=== PATIENT | female | born 1955 | race Caucasian/White ===

== ENCOUNTER 2020-08-03 14:46 | Inpatient (IN) ==
[2020-08-03] MEDS ORDERED: ACETAMINOPHEN 500 MG TABLET PO STA (14:57)
[2020-08-03] MEDS ORDERED: SODIUM CHLORIDE 0.9% 2,000 ML IV STA (14:57)
[2020-08-03 15:40] LABS: Bacteria,Urine Occasional /HPF (Few); Bilirubin,Urine Negative (Negative); Blood, Urine Negative (Negative); Glucose,Urine (UA) Negative (Negative); Ketones,Urine Negative (Negative); Nitrite,Urine Negative (Negative); Protein,Urine 30 MG/DL; Squamous Epithelial Cell,Urine Occasional /HPF (0-10); Urine Appearance CLOUDY (Clear); Urine Color Amber (Yellow); Urine Specific Gravity 1.015 (1.001-1.035); Urine Urobilinogen < 2.0 EU/DL (0.2-1.0); WBC,Urine 2 /HPF (0-6)
[2020-08-03 15:45] LABS: Basophils % 0.3 % (0.0-0.8); Hematocrit 40.7 VOL% (35.7-47.0); Immature Granulocytes % 1.1 %; Immature Granulocytes Absolute 0.18 #; Lymphocytes # 1.6 10*3/uL (1.4-4.0); Lymphocytes % 10.1 % (21.3-54.2); Mean Corpuscular HGB Conc 34.4 GM/DL (32-36); Mean Corpuscular Volume 88.9 FL (87-102); Mean Platelet Volume 11.8 FL (9.6-12.0); Monocytes % 7.1 % (1.7-12.7); NRBC # 0.09 10*3/uL; Neutrophils % 81.4 % (38.7-73.9); Platelet Count 186 T/CUMM (130-400); Red Blood Count 4.58 MC/CUMM (3.8-5.5); Red Cell Distribution Width 16.6 % (9.3-17.3); White Blood Count 15.8 T/CUMM (4-12)
[2020-08-03 15:54] LABS: INR 1.5; PT Patient Result 15.5 SECS (9.8-11.9)
[2020-08-03 16:11] LABS: Alanine Aminotransferase 37 U/L (13-56); Albumin 2.8 G/DL (3.4-5.0); Alkaline Phosphatase 245 U/L (45-117); Aspartate Amino Transferase 67 U/L (0-37); Blood Urea Nitrogen 34 MG/DL (7-18); Calcium 8.6 MG/DL (8.5-10.1); Glucose 95 MG/DL (74-106); Osmolality,Calculated 269.7 MOS/KG (273-304)
[2020-08-03 16:17] LABS: Estimated Glom Filtration Rate 0 ML/MIN
[2020-08-03] MEDS ORDERED: DEXAMETHASONE 4 MG/1 ML VIAL IV STA (16:21)
[2020-08-03] MEDS ORDERED: PIPERACILLIN/TAZOBACTAM 3,375 MG in SODIUM CHLORIDE 0.9% 100 ML IV STA ×2 (16:21→17:24)
[2020-08-03] MEDS ORDERED: ONDANSETRON 4 MG/2 ML VIAL IV PRN (16:30)
[2020-08-03] MEDS ORDERED: DEXTROSE 50% 25 GM/50 ML VIAL IV PRN ×2 (16:30→16:50)
[2020-08-03] MEDS ORDERED: GLUCAGON 1 MG VIAL IM PRN ×2 (16:30→16:50)
[2020-08-03] MEDS ORDERED: ACETAMINOPHEN 325 MG TABLET PO PRN (16:30)
[2020-08-03] MEDS ORDERED: FUROSEMIDE 40 MG/4 ML VIAL IV STA (16:36)
[2020-08-03 17:12] LABS: Ferritin 935.5 ng/ml (8-252)
[2020-08-03] MEDS ORDERED: SODIUM CHLORIDE 0.9% 100 ML IV ONE (17:31)
[2020-08-03] MEDS ORDERED: PIPERACILLIN/TAZOBACTAM 3,375 MG VIAL IV ONE (17:31)
[2020-08-03] MEDS: ENOXAPARIN 30 MG/0.3 ML SYRINGE SUBCUT SCH (20:35)
[2020-08-03] MEDS: ACETAMINOPHEN 325 MG TABLET PO PRN (20:35)
[2020-08-03] MEDS: CHOLECALCIFEROL 400 UNIT TABLET PO SCH (20:35)
[2020-08-03] MEDS: ASCORBIC ACID 500 MG TABLET PO SCH (20:35)
[2020-08-03] MEDS: ONDANSETRON 4 MG/2 ML VIAL IV PRN (23:42)
[2020-08-04] MEDS: ACETAMINOPHEN 325 MG TABLET PO PRN ×2 (00:21→06:38)
[2020-08-04] MEDS: ONDANSETRON 4 MG/2 ML VIAL IV PRN ×2 (03:37→22:14)
[2020-08-04 06:37] LABS: HDL Cholesterol < 10 MG/DL (40-60); Thyroid Stimulating Hormone 0.105 uIU/ml (0.358-3.74); Triglycerides 276 MG/DL (2-150); VLDL CHOLESTEROL 55.2 MG/DL
[2020-08-04] MEDS: PANTOPRAZOLE 40 MG TABLET PO SCH (08:22)
[2020-08-04] MEDS: DEXAMETHASONE 4 MG/1 ML VIAL IV SCH (08:22)
[2020-08-04] MEDS: ASCORBIC ACID 500 MG TABLET PO SCH ×3 (08:23→22:15)
[2020-08-04] MEDS: ZINC GLUCONATE 50 MG TABLET PO SCH (08:23)
[2020-08-04] MEDS: CHOLECALCIFEROL 400 UNIT TABLET PO SCH ×3 (08:23→22:15)
[2020-08-04] MEDS: cefTRIAXone 1,000 MG in SYRINGE 1 EACH IV SCH (08:59)
[2020-08-04] MEDS ORDERED: cefTRIAXone 1,000 MG in SYRINGE 1 EACH IV SCH (09:00)
[2020-08-04] MEDS ORDERED: AZITHROMYCIN INJ 500 MG in SODIUM CHLORIDE 0.9% 250 ML IV SCH (09:00)
[2020-08-04] MEDS ORDERED: PANTOPRAZOLE 40 MG TABLET PO SCH ×2 (09:00)
[2020-08-04] MEDS: AZITHROMYCIN INJ 500 MG in SODIUM CHLORIDE 0.9% 250 ML IV SCH (11:26)
[2020-08-04 12:23] LABS: Albumin 2.4 G/DL (3.4-5.0); Bilirubin,Total 0.4 MG/DL (0.2-1.0); Calcium 8.4 MG/DL (8.5-10.1); Osmolality,Calculated 289.3 MOS/KG (273-304); Total Protein 6.8 G/DL (6.4-8.3)
[2020-08-04 13:07] LABS: Basophils % 0.2 % (0.0-0.8); Hematocrit 37.5 VOL% (35.7-47.0); Hemoglobin 13.1 GM/DL (12.0-16.0); Immature Granulocytes % 1.7 %; Immature Granulocytes Absolute 0.33 #; Lymphocytes # 2.3 10*3/uL (1.4-4.0); Lymphocytes % 11.7 % (21.3-54.2); Mean Corpuscular HGB Conc 34.9 GM/DL (32-36); Mean Corpuscular Volume 88.7 FL (87-102); Mean Platelet Volume 11.6 FL (9.6-12.0); Monocytes % 6.7 % (1.7-12.7); NRBC # 0.04 10*3/uL; Neutrophils % 79.7 % (38.7-73.9); Platelet Count 210 T/CUMM (130-400); Red Blood Count 4.23 MC/CUMM (3.8-5.5); Red Cell Distribution Width 16.4 % (9.3-17.3); White Blood Count 19.4 T/CUMM (4-12)
[2020-08-04] MEDS: ACETAMINOPHEN 500 MG TABLET PO SCH ×2 (13:29→22:15)
[2020-08-04 13:49] LABS: ABG Base Excess 0.4 MMOL/L (-2.5-2.5); ABG HCO3 24.5 MMOL/L (20-26); ABG Oxygen Saturation 88.7 % (95-100); ABG PCO2 27.8 MM HG (35-48); ABG PO2 51.6 MM HG (80-95); ABG TCO2 19.3 MMOL/L (23-27)
[2020-08-04] MEDS: LOPERAMIDE 2 MG CAPSULE PO PRN ×2 (14:29→18:37)
[2020-08-04 17:25] LABS: Hypochromasia 1+
[2020-08-04] MEDS: CLORAZEPATE 3.75 MG TABLET PO ONE ×2 (21:35→21:45)
[2020-08-04] MEDS: ENOXAPARIN 30 MG/0.3 ML SYRINGE SUBCUT SCH ×2 (21:45→22:15)
[2020-08-04] MEDS ORDERED: METOPROLOL TARTRATE 5 MG/5 ML VIAL IV ONE (23:44)
[2020-08-05] MEDS ORDERED: LORazepam 2 MG/1 ML VIAL IV ONE ×3 (01:34→09:52)
[2020-08-05] MEDS ORDERED: PANTOPRAZOLE 40 MG VIAL IV ONE (01:36)
[2020-08-05] MEDS ORDERED: DILTIAZEM 50 MG/10 ML VIAL IV ONE ×2 (05:02→05:27)
[2020-08-05] MEDS ORDERED: METOPROLOL TARTRATE 5 MG/5 ML VIAL IV ONE ×2 (05:39→05:59)
[2020-08-05 05:40] LABS: ABG Base Excess 2.5 MMOL/L (-2.5-2.5); ABG HCO3 26.3 MMOL/L (20-26); ABG Oxygen Saturation 86.4 % (95-100); ABG PCO2 28.3 MM HG (35-48); ABG PH 7.536 (7.35-7.45); ABG PO2 47.5 MM HG (80-95); ABG TCO2 20.8 MMOL/L (23-27)
[2020-08-05] MEDS ORDERED: METOPROLOL TARTRATE 50 MG TABLET PO SCH (06:00)
[2020-08-05] MEDS ORDERED: ACETAMINOPHEN 650 MG SUPP RECTAL ONE (06:12)
[2020-08-05 06:22] LABS: Basophils % 0.1 % (0.0-0.8); Hematocrit 37.2 VOL% (35.7-47.0); Hemoglobin 13.1 GM/DL (12.0-16.0); Immature Granulocytes % 1.3 %; Immature Granulocytes Absolute 0.32 #; Lymphocytes # 1.4 10*3/uL (1.4-4.0); Lymphocytes % 5.9 % (21.3-54.2); Mean Corpuscular HGB Conc 35.2 GM/DL (32-36); Mean Corpuscular Volume 87.1 FL (87-102); Mean Platelet Volume 11.3 FL (9.6-12.0); Monocytes % 3.2 % (1.7-12.7); NRBC # 0.04 10*3/uL; Neutrophils % 89.5 % (38.7-73.9); Platelet Count 240 T/CUMM (130-400); Red Blood Count 4.27 MC/CUMM (3.8-5.5); Red Cell Distribution Width 16.1 % (9.3-17.3)
[2020-08-05 06:46] LABS: Band Neutrophils 1 % (0-10); Lymphocytes 3 % (20-55); Segmented Neutrophils 90 % (50-85); Total Cells Counted 100
[2020-08-05 06:48] LABS: Target Cells Few
[2020-08-05 06:49] LABS: Hypochromasia 1+; Platelet Estimate Adequate
[2020-08-05 06:50] LABS: Albumin 2.7 G/DL (3.4-5.0); Bilirubin,Total 1.3 MG/DL (0.2-1.0); Calcium 8.8 MG/DL (8.5-10.1); Osmolality,Calculated 274.8 MOS/KG (273-304); Total Protein 6.4 G/DL (6.4-8.3)
[2020-08-05] MEDS: LORazepam 2 MG/1 ML VIAL IV ONE ×2 (07:50→10:57)
[2020-08-05] MEDS ORDERED: [UNRECOGNIZED DRUG - OTHER] IV SCH (08:30)
[2020-08-05] MEDS ORDERED: ACETAMINOPHEN 650 MG SUPP RECTAL PRN (08:33)
[2020-08-05] MEDS: ACETAMINOPHEN 500 MG TABLET PO SCH ×3 (08:47→22:45)
[2020-08-05] MEDS: DEXAMETHASONE 4 MG/1 ML VIAL IV SCH (08:55)
[2020-08-05] MEDS: PANTOPRAZOLE 40 MG TABLET PO SCH (08:59)
[2020-08-05] MEDS: ENOXAPARIN 60 MG/0.6 ML SYRINGE SUBCUT SCH ×2 (08:59→22:09)
[2020-08-05] MEDS: cefTRIAXone 1,000 MG in SYRINGE 1 EACH IV SCH (09:00)
[2020-08-05] MEDS: ASCORBIC ACID 500 MG TABLET PO SCH ×2 (09:08→20:54)
[2020-08-05] MEDS: ZINC GLUCONATE 50 MG TABLET PO SCH (09:09)
[2020-08-05] MEDS: CHOLECALCIFEROL 400 UNIT TABLET PO SCH ×2 (09:09→20:54)
[2020-08-05 09:41] LABS: Amorphous Crystals,Urine Occasional /HPF (Few); Bilirubin,Urine Negative (Negative); Blood, Urine Negative (Negative); Glucose,Urine (UA) Negative (Negative); Ketones,Urine 20 mg/dL (Negative); Mucus,Urine Occasional /LPF (Occasional); Nitrite,Urine Negative (Negative); Protein,Urine 100 MG/DL; RBC,Urine 1 /HPF (0-4); Squamous Epithelial Cell,Urine Occasional /HPF (0-10); Urine Appearance CLEAR (Clear); Urine Color Yellow (Yellow); Urine Specific Gravity 1.024 (1.001-1.035); Urine Urobilinogen < 2.0 EU/DL (0.2-1.0); WBC,Urine <1 /HPF (0-6)
[2020-08-05] MEDS ORDERED: ETOMIDATE 20 MG/10 ML VIAL IV ONE ×5 (09:46→10:15)
[2020-08-05] MEDS ORDERED: SUCCINYLCHOLINE 200 MG/10 ML VIAL IV ONE ×2 (09:57→10:06)
[2020-08-05] MEDS ORDERED: IMMUNE GLOBULIN 10% 20 GM in PREMIX 1 EACH IV SCH (10:00)
[2020-08-05] MEDS ORDERED: SUCCINYLCHOLINE 200 MG/10 ML VIAL ONE (10:05)
[2020-08-05] MEDS ORDERED: ROCURONIUM 1,000 MG in SODIUM CHLORIDE 0.9% 175 ML IV PRN (10:34)
[2020-08-05 11:01] LABS: ABG Base Excess -2.8 MMOL/L (-2.5-2.5); ABG HCO3 22.8 MMOL/L (20-26); ABG PCO2 42.9 MM HG (35-48); ABG PH 7.344 (7.35-7.45); ABG PO2 119.6 MM HG (80-95); ABG TCO2 24.2 MMOL/L (23-27)
[2020-08-05] MEDS ORDERED: DIGOXIN 0.5 MG/2 ML AMP IV ONE ×2 (11:15→12:30)
[2020-08-05] MEDS ORDERED: SODIUM CHLORIDE 0.9% 1,000 ML IV ONE (12:17)
[2020-08-05] MEDS: fentaNYL INJ 1,250 MCG in SODIUM CHLORIDE 0.9% 225 ML IV PRN ×2 (12:45→20:49)
[2020-08-05] MEDS: METOPROLOL TARTRATE 5 MG/5 ML VIAL IV SCH ×3 (14:42→23:44)
[2020-08-05] MEDS: AZITHROMYCIN INJ 500 MG in SODIUM CHLORIDE 0.9% 250 ML IV SCH (14:43)
[2020-08-05] MEDS: ACETAMINOPHEN 325 MG TABLET PO PRN (17:25)
[2020-08-05] MEDS ORDERED: NOREPINEPHRINE 8 MG in SODIUM CHLORIDE 0.9% 242 ML IV PRN (18:57)
[2020-08-05] MEDS: MIDAZOLAM 100 MG in SODIUM CHLORIDE 0.9% 80 ML IV PRN (20:22)
[2020-08-05] MEDS: ZINC OXIDE 16% PASTE 57 GM TUBE TOP SCH (20:54)
[2020-08-06] MEDS: fentaNYL INJ 1,250 MCG in SODIUM CHLORIDE 0.9% 225 ML IV PRN ×5 (01:56→22:47)
[2020-08-06 03:39] LABS: Allen Test Positive; Pt O2 Delivery Device Ventilator
[2020-08-06 03:40] LABS: ABG Base Excess -3.1 MMOL/L (-2.5-2.5); ABG HCO3 21.7 MMOL/L (20-26); ABG Oxygen Saturation 98.4 % (95-100); ABG PCO2 37.8 MM HG (35-48); ABG PH 7.377 (7.35-7.45); ABG PO2 128.2 MM HG (80-95); ABG TCO2 22.9 MMOL/L (23-27)
[2020-08-06 04:33] LABS: Basophils % 0.1 % (0.0-0.8); Hematocrit 34.7 VOL% (35.7-47.0); Hemoglobin 11.5 GM/DL (12.0-16.0); Immature Granulocytes % 0.6 %; Immature Granulocytes Absolute 0.12 #; Lymphocytes # 1.5 10*3/uL (1.4-4.0); Lymphocytes % 7.4 % (21.3-54.2); Mean Corpuscular HGB Conc 33.1 GM/DL (32-36); Mean Corpuscular Volume 91.1 FL (87-102); Mean Platelet Volume 11.8 FL (9.6-12.0); Monocytes % 6.7 % (1.7-12.7); NRBC # 0.04 10*3/uL; Neutrophils % 85.2 % (38.7-73.9); Platelet Count 191 T/CUMM (130-400); Red Blood Count 3.81 MC/CUMM (3.8-5.5); Red Cell Distribution Width 16.8 % (9.3-17.3)
[2020-08-06 04:59] LABS: Albumin 2.3 G/DL (3.4-5.0); Bilirubin,Total 0.7 MG/DL (0.2-1.0); Calcium 8.3 MG/DL (8.5-10.1); Total Protein 6.8 G/DL (6.4-8.3)
[2020-08-06 05:00] LABS: Osmolality,Calculated 287.4 MOS/KG (273-304)
[2020-08-06] MEDS: METOPROLOL TARTRATE 5 MG/5 ML VIAL IV SCH ×3 (05:44→17:54)
[2020-08-06] MEDS: ACETAMINOPHEN 500 MG TABLET PO SCH ×3 (05:45→22:05)
[2020-08-06] MEDS: PANTOPRAZOLE 40 MG VIAL IV SCH (08:52)
[2020-08-06] MEDS: ENOXAPARIN 60 MG/0.6 ML SYRINGE SUBCUT SCH ×2 (08:52→21:02)
[2020-08-06] MEDS: CHOLECALCIFEROL 400 UNIT TABLET PO SCH ×2 (08:53→21:02)
[2020-08-06] MEDS: ASCORBIC ACID 500 MG TABLET PO SCH ×2 (08:53→21:02)
[2020-08-06] MEDS: DEXAMETHASONE 4 MG/1 ML VIAL IV SCH (08:53)
[2020-08-06] MEDS: ZINC OXIDE 16% PASTE 57 GM TUBE TOP SCH ×2 (08:53→21:02)
[2020-08-06] MEDS: cefTRIAXone 1,000 MG in SYRINGE 1 EACH IV SCH (08:53)
[2020-08-06] MEDS: ZINC GLUCONATE 50 MG TABLET PO SCH (08:53)
[2020-08-06] MEDS: AZITHROMYCIN 250 MG TABLET PO SCH ×3 (08:59→09:23)
[2020-08-06] MEDS: MIDAZOLAM 100 MG in SODIUM CHLORIDE 0.9% 80 ML IV PRN (11:28)
[2020-08-06] MEDS: INSULIN REGULAR 100 UNIT/ML SUBCUT SCH ×2 (12:09→18:16)
[2020-08-07] MEDS: INSULIN REGULAR 100 UNIT/ML SUBCUT SCH ×4 (01:33→19:05)
[2020-08-07] MEDS: MIDAZOLAM 100 MG in SODIUM CHLORIDE 0.9% 80 ML IV PRN ×2 (01:33→14:57)
[2020-08-07] MEDS: fentaNYL INJ 1,250 MCG in SODIUM CHLORIDE 0.9% 225 ML IV PRN (02:01)
[2020-08-07 04:10] LABS: Basophils % 0.2 % (0.0-0.8); Hematocrit 31.5 VOL% (35.7-47.0); Hemoglobin 10.6 GM/DL (12.0-16.0); Immature Granulocytes % 1.7 %; Immature Granulocytes Absolute 0.31 #; Lymphocytes # 2.4 10*3/uL (1.4-4.0); Lymphocytes % 13.1 % (21.3-54.2); Mean Corpuscular HGB Conc 33.7 GM/DL (32-36); Mean Corpuscular Volume 90.8 FL (87-102); Mean Platelet Volume 12.1 FL (9.6-12.0); Monocytes % 6.5 % (1.7-12.7); NRBC # 0.17 10*3/uL; Neutrophils % 78.5 % (38.7-73.9); Platelet Count 217 T/CUMM (130-400); Red Blood Count 3.47 MC/CUMM (3.8-5.5); Red Cell Distribution Width 16.8 % (9.3-17.3); White Blood Count 18.4 T/CUMM (4-12)
[2020-08-07 04:25] LABS: ABG Base Excess 0.1 MMOL/L (-2.5-2.5); ABG HCO3 24.9 MMOL/L (20-26); ABG Oxygen Saturation 97.3 % (95-100); ABG PCO2 41.2 MM HG (35-48); ABG PH 7.399 (7.35-7.45); ABG TCO2 26.2 MMOL/L (23-27); Allen Test Positive; Pt O2 Delivery Device Ventilator
[2020-08-07 04:38] LABS: Calcium 8.2 MG/DL (8.5-10.1); Ferritin 1020.8 ng/ml (8-252); Osmolality,Calculated 301.6 MOS/KG (273-304)
[2020-08-07] MEDS: fentaNYL INJ 2,500 MCG in SODIUM CHLORIDE 0.9% 450 ML IV PRN ×2 (05:00→14:55)
[2020-08-07] MEDS: ACETAMINOPHEN 500 MG TABLET PO SCH ×3 (06:22→21:20)
[2020-08-07] MEDS: METOPROLOL TARTRATE 5 MG/5 ML VIAL IV SCH (06:38)
[2020-08-07] MEDS ORDERED: ENOXAPARIN 120 MG/0.8 ML SYRINGE SUBCUT ONE (07:49)
[2020-08-07] MEDS: PANTOPRAZOLE 40 MG VIAL IV SCH (08:12)
[2020-08-07] MEDS: DEXAMETHASONE 4 MG/1 ML VIAL IV SCH (08:12)
[2020-08-07] MEDS: AZITHROMYCIN 250 MG TABLET PO SCH (08:13)
[2020-08-07] MEDS: ZINC GLUCONATE 50 MG TABLET PO SCH (08:13)
[2020-08-07] MEDS: CHOLECALCIFEROL 400 UNIT TABLET PO SCH ×2 (08:13→20:17)
[2020-08-07] MEDS: ASCORBIC ACID 500 MG TABLET PO SCH ×2 (08:13→20:17)
[2020-08-07] MEDS: cefTRIAXone 1,000 MG in SYRINGE 1 EACH IV SCH (08:13)
[2020-08-07] MEDS: MULTIVITAMIN LIQUID (CENTRUM) 60 ML BOTTLE PO SCH (08:14)
[2020-08-07] MEDS: ZINC OXIDE 16% PASTE 57 GM TUBE TOP SCH ×2 (08:14→20:18)
[2020-08-07] MEDS: ENOXAPARIN 60 MG/0.6 ML SYRINGE SUBCUT SCH ×2 (08:17→20:18)
[2020-08-07] MEDS: METOCLOPRAMIDE 10 MG/2 ML VIAL IV SCH ×2 (11:57→18:30)
[2020-08-08] MEDS: METOCLOPRAMIDE 10 MG/2 ML VIAL IV SCH ×4 (00:15→18:38)
[2020-08-08] MEDS: INSULIN REGULAR 100 UNIT/ML SUBCUT SCH ×4 (00:16→18:37)
[2020-08-08] MEDS: fentaNYL INJ 2,500 MCG in SODIUM CHLORIDE 0.9% 450 ML IV PRN ×3 (00:51→22:25)
[2020-08-08 04:40] LABS: ABG Base Excess 0.2 MMOL/L (-2.5-2.5); ABG HCO3 24.5 MMOL/L (20-26); ABG Oxygen Saturation 95.8 % (95-100); ABG PCO2 45.9 MM HG (35-48); ABG PH 7.364 (7.35-7.45); ABG PO2 82.7 MM HG (80-95); Allen Test Positive; Pt O2 Delivery Device Ventilator
[2020-08-08] MEDS: MIDAZOLAM 100 MG in SODIUM CHLORIDE 0.9% 80 ML IV PRN ×2 (04:54→19:13)
[2020-08-08 06:23] LABS: Basophils % 0.1 % (0.0-0.8); Hemoglobin 10.5 GM/DL (12.0-16.0); Immature Granulocytes % 1.6 %; Immature Granulocytes Absolute 0.26 #; Lymphocytes # 2.7 10*3/uL (1.4-4.0); Lymphocytes % 16.9 % (21.3-54.2); Mean Corpuscular HGB Conc 32.8 GM/DL (32-36); Mean Corpuscular Volume 92.8 FL (87-102); Mean Platelet Volume 11.9 FL (9.6-12.0); Monocytes % 9.2 % (1.7-12.7); NRBC # 0.35 10*3/uL; Neutrophils % 72.2 % (38.7-73.9); Platelet Count 297 T/CUMM (130-400); Red Blood Count 3.45 MC/CUMM (3.8-5.5); Red Cell Distribution Width 17.2 % (9.3-17.3); White Blood Count 16.1 T/CUMM (4-12)
[2020-08-08] MEDS: ACETAMINOPHEN 500 MG TABLET PO SCH ×3 (06:43→21:51)
[2020-08-08 06:45] LABS: Calcium 8.3 MG/DL (8.5-10.1); Osmolality,Calculated 319.4 MOS/KG (273-304)
[2020-08-08] MEDS: ZINC OXIDE 16% PASTE 57 GM TUBE TOP SCH ×2 (10:03→21:11)
[2020-08-08] MEDS: PANTOPRAZOLE 40 MG VIAL IV SCH (10:04)
[2020-08-08] MEDS: DEXAMETHASONE 4 MG/1 ML VIAL IV SCH (10:04)
[2020-08-08] MEDS: ENOXAPARIN 60 MG/0.6 ML SYRINGE SUBCUT SCH ×2 (10:04→21:11)
[2020-08-08] MEDS: MULTIVITAMIN LIQUID (CENTRUM) 60 ML BOTTLE PO SCH (10:04)
[2020-08-08] MEDS: CHOLECALCIFEROL 400 UNIT TABLET PO SCH ×2 (10:05→21:11)
[2020-08-08] MEDS: AZITHROMYCIN 250 MG TABLET PO SCH (10:05)
[2020-08-08] MEDS: cefTRIAXone 1,000 MG in SYRINGE 1 EACH IV SCH (10:05)
[2020-08-08] MEDS: ASCORBIC ACID 500 MG TABLET PO SCH ×2 (10:05→21:11)
[2020-08-08] MEDS: ZINC GLUCONATE 50 MG TABLET PO SCH (10:05)
[2020-08-09] MEDS: METOCLOPRAMIDE 10 MG/2 ML VIAL IV SCH ×4 (00:24→17:50)
[2020-08-09] MEDS: INSULIN REGULAR 100 UNIT/ML SUBCUT SCH ×4 (00:24→17:49)
[2020-08-09 04:43] LABS: Basophils % 0.1 % (0.0-0.8); Hematocrit 32.2 VOL% (35.7-47.0); Hemoglobin 10.7 GM/DL (12.0-16.0); Immature Granulocytes % 1.7 %; Immature Granulocytes Absolute 0.27 #; Lymphocytes # 3.3 10*3/uL (1.4-4.0); Lymphocytes % 20.5 % (21.3-54.2); Mean Corpuscular HGB Conc 33.2 GM/DL (32-36); Mean Corpuscular Volume 93.9 FL (87-102); Mean Platelet Volume 11.7 FL (9.6-12.0); Monocytes % 8.6 % (1.7-12.7); NRBC # 0.53 10*3/uL; Neutrophils % 69.1 % (38.7-73.9); Platelet Count 358 T/CUMM (130-400); Red Blood Count 3.43 MC/CUMM (3.8-5.5); Red Cell Distribution Width 17.4 % (9.3-17.3); White Blood Count 15.9 T/CUMM (4-12)
[2020-08-09 05:17] LABS: Albumin 1.9 G/DL (3.4-5.0); Bilirubin,Total 0.4 MG/DL (0.2-1.0); Calcium 8.8 MG/DL (8.5-10.1); Total Protein 5.8 G/DL (6.4-8.3)
[2020-08-09 05:27] LABS: ABG Base Excess 0.9 MMOL/L (-2.5-2.5); ABG HCO3 25.9 MMOL/L (20-26); ABG Oxygen Saturation 95.5 % (95-100); ABG PCO2 43.1 MM HG (35-48); ABG PH 7.397 (7.35-7.45); ABG PO2 81.2 MM HG (80-95); ABG TCO2 27.2 MMOL/L (23-27)
[2020-08-09] MEDS: ACETAMINOPHEN 500 MG TABLET PO SCH ×3 (06:37→22:20)
[2020-08-09] MEDS: MIDAZOLAM 100 MG in SODIUM CHLORIDE 0.9% 80 ML IV PRN ×2 (07:55→21:45)
[2020-08-09] MEDS: CHOLECALCIFEROL 400 UNIT TABLET PO SCH ×2 (09:13→20:50)
[2020-08-09] MEDS: ZINC OXIDE 16% PASTE 57 GM TUBE TOP SCH ×2 (09:14→20:51)
[2020-08-09] MEDS: ASCORBIC ACID 500 MG TABLET PO SCH ×2 (09:14→20:50)
[2020-08-09] MEDS: AZITHROMYCIN 250 MG TABLET PO SCH (09:14)
[2020-08-09] MEDS: ZINC GLUCONATE 50 MG TABLET PO SCH (09:14)
[2020-08-09] MEDS: DEXAMETHASONE 4 MG/1 ML VIAL IV SCH (09:16)
[2020-08-09] MEDS: PANTOPRAZOLE 40 MG VIAL IV SCH (09:16)
[2020-08-09] MEDS: ENOXAPARIN 60 MG/0.6 ML SYRINGE SUBCUT SCH ×2 (09:16→20:50)
[2020-08-09] MEDS: MULTIVITAMIN LIQUID (CENTRUM) 60 ML BOTTLE PO SCH (09:16)
[2020-08-09] MEDS: cefTRIAXone 1,000 MG in SYRINGE 1 EACH IV SCH (09:17)
[2020-08-09] MEDS: fentaNYL INJ 2,500 MCG in SODIUM CHLORIDE 0.9% 450 ML IV PRN ×2 (09:18→21:45)
[2020-08-09] MEDS: ACETAMINOPHEN 325 MG TABLET PO PRN (09:20)
[2020-08-09] MEDS: ALBUMIN 25% 25 GM in PREMIX 1 EACH IV SCH ×2 (14:30→22:21)
[2020-08-09] MEDS ORDERED: METOPROLOL TARTRATE 5 MG/5 ML VIAL IV ONE (21:15)
[2020-08-10] MEDS: INSULIN REGULAR 100 UNIT/ML SUBCUT SCH ×4 (00:47→17:19)
[2020-08-10] MEDS: METOCLOPRAMIDE 10 MG/2 ML VIAL IV SCH ×4 (00:47→17:19)
[2020-08-10 04:29] LABS: Basophils % 0.1 % (0.0-0.8); Eosinophils % 0.1 % (0.00-10.9); Hematocrit 30.1 VOL% (35.7-47.0); Hemoglobin 9.8 GM/DL (12.0-16.0); Immature Granulocytes % 1.7 %; Immature Granulocytes Absolute 0.31 #; Lymphocytes # 3.3 10*3/uL (1.4-4.0); Lymphocytes % 18.7 % (21.3-54.2); Mean Corpuscular HGB Conc 32.6 GM/DL (32-36); Mean Corpuscular Volume 94.4 FL (87-102); Mean Platelet Volume 11.8 FL (9.6-12.0); Monocytes % 6.4 % (1.7-12.7); NRBC # 0.59 10*3/uL; Platelet Count 404 T/CUMM (130-400); Red Blood Count 3.19 MC/CUMM (3.8-5.5); Red Cell Distribution Width 17.2 % (9.3-17.3); White Blood Count 17.8 T/CUMM (4-12)
[2020-08-10 04:35] LABS: ABG Base Excess 5.2 MMOL/L (-2.5-2.5); ABG HCO3 29.6 MMOL/L (20-26); ABG Oxygen Saturation 93.8 % (95-100); ABG PH 7.456 (7.35-7.45); ABG PO2 66.2 MM HG (80-95); ABG TCO2 30.9 MMOL/L (23-27); Allen Test Positive; Pt O2 Delivery Device Ventilator
[2020-08-10 05:02] LABS: Albumin 2.8 G/DL (3.4-5.0); Bilirubin,Total 0.7 MG/DL (0.2-1.0); Osmolality,Calculated 321.2 MOS/KG (273-304); Total Protein 6.3 G/DL (6.4-8.3)
[2020-08-10] MEDS: ACETAMINOPHEN 500 MG TABLET PO SCH ×3 (05:30→21:14)
[2020-08-10] MEDS ORDERED: METOPROLOL TARTRATE 5 MG/5 ML VIAL IV ONE ×2 (05:38→05:55)
[2020-08-10] MEDS: ALBUMIN 25% 25 GM in PREMIX 1 EACH IV SCH (06:12)
[2020-08-10] MEDS: PANTOPRAZOLE 40 MG VIAL IV SCH (08:29)
[2020-08-10] MEDS: cefTRIAXone 1,000 MG in SYRINGE 1 EACH IV SCH (08:29)
[2020-08-10] MEDS: FAMOTIDINE 20 MG TABLET PER TUBE SCH (08:30)
[2020-08-10] MEDS: DEXAMETHASONE 4 MG/1 ML VIAL IV SCH (08:31)
[2020-08-10] MEDS: AZITHROMYCIN 250 MG TABLET PO SCH (08:31)
[2020-08-10] MEDS: ASCORBIC ACID 500 MG TABLET PO SCH ×2 (08:32→21:14)
[2020-08-10] MEDS: ENOXAPARIN 60 MG/0.6 ML SYRINGE SUBCUT SCH ×2 (08:32→21:15)
[2020-08-10] MEDS: CHOLECALCIFEROL 400 UNIT TABLET PO SCH ×2 (08:32→21:14)
[2020-08-10] MEDS: MULTIVITAMIN LIQUID (CENTRUM) 60 ML BOTTLE PO SCH (08:32)
[2020-08-10] MEDS: ZINC GLUCONATE 50 MG TABLET PO SCH (08:32)
[2020-08-10] MEDS: ZINC OXIDE 16% PASTE 57 GM TUBE TOP SCH ×2 (08:32→21:15)
[2020-08-10] MEDS: fentaNYL INJ 2,500 MCG in DEXTROSE 5% 450 ML IV PRN ×2 (08:42→19:15)
[2020-08-10] MEDS: fentaNYL INJ 2,500 MCG in SODIUM CHLORIDE 0.9% 450 ML IV PRN (08:42)
[2020-08-10] MEDS: METOPROLOL TARTRATE 5 MG/5 ML VIAL IV PRN ×2 (11:24→22:26)
[2020-08-10] MEDS: MIDAZOLAM 100 MG in DEXTROSE 5% 80 ML IV PRN (11:26)
[2020-08-10] MEDS: MIDAZOLAM 100 MG in SODIUM CHLORIDE 0.9% 80 ML IV PRN (11:26)
[2020-08-10] MEDS ORDERED: METOPROLOL TARTRATE 25 MG TABLET PO SCH (13:30)
[2020-08-10] MEDS ORDERED: METOPROLOL TARTRATE 25 MG TABLET PER TUBE SCH (13:30)
[2020-08-10] MEDS: ALBUMIN 25% 12.5 GM in PREMIX 1 EACH IV SCH ×2 (14:24→21:15)
[2020-08-10] MEDS: METOPROLOL TARTRATE 25 MG TABLET PER TUBE SCH (16:20)
[2020-08-10] MEDS: MINERAL OIL/PETROLATUM OPH OINT 3.5 GM TUBE BOTH EYES SCH (21:14)
[2020-08-11] MEDS: METOCLOPRAMIDE 10 MG/2 ML VIAL IV SCH ×4 (00:21→18:00)
[2020-08-11] MEDS: INSULIN REGULAR 100 UNIT/ML SUBCUT SCH ×4 (00:21→18:00)
[2020-08-11] MEDS: MIDAZOLAM 100 MG in DEXTROSE 5% 80 ML IV PRN ×2 (00:47→13:30)
[2020-08-11] MEDS ORDERED: METOPROLOL TARTRATE 5 MG/5 ML VIAL IV ONE (00:59)
[2020-08-11] MEDS: METOPROLOL TARTRATE 25 MG TABLET PER TUBE SCH ×2 (02:50→16:33)
[2020-08-11] MEDS: fentaNYL INJ 2,500 MCG in DEXTROSE 5% 450 ML IV PRN ×5 (02:52→23:46)
[2020-08-11 03:55] LABS: Basophils % 0.1 % (0.0-0.8); Eosinophils % 0.2 % (0.00-10.9); Hematocrit 27.1 VOL% (35.7-47.0); Hemoglobin 8.7 GM/DL (12.0-16.0); Immature Granulocytes % 1.3 %; Immature Granulocytes Absolute 0.22 #; Lymphocytes # 2.3 10*3/uL (1.4-4.0); Mean Corpuscular HGB Conc 32.1 GM/DL (32-36); Mean Corpuscular Volume 95.8 FL (87-102); Mean Platelet Volume 11.7 FL (9.6-12.0); Monocytes % 6.7 % (1.7-12.7); NRBC # 0.43 10*3/uL; Neutrophils % 78.7 % (38.7-73.9); Platelet Count 395 T/CUMM (130-400); Red Blood Count 2.83 MC/CUMM (3.8-5.5); Red Cell Distribution Width 17.4 % (9.3-17.3); White Blood Count 17.6 T/CUMM (4-12)
[2020-08-11 04:01] LABS: Allen Test Positive; Pt O2 Delivery Device Ventilator
[2020-08-11 04:03] LABS: ABG Base Excess 6.4 MMOL/L (-2.5-2.5); ABG HCO3 31.7 MMOL/L (20-26); ABG Oxygen Saturation 92.8 % (95-100); ABG PCO2 50.3 MM HG (35-48); ABG PH 7.418 (7.35-7.45); ABG PO2 65.8 MM HG (80-95); ABG TCO2 33.3 MMOL/L (23-27)
[2020-08-11 04:31] LABS: Albumin 2.9 G/DL (3.4-5.0); Bilirubin,Total 0.6 MG/DL (0.2-1.0); Calcium 8.6 MG/DL (8.5-10.1); Osmolality,Calculated 314.6 MOS/KG (273-304); Total Protein 5.5 G/DL (6.4-8.3)
[2020-08-11] MEDS: ACETAMINOPHEN 500 MG TABLET PO SCH (05:50)
[2020-08-11] MEDS: ALBUMIN 25% 12.5 GM in PREMIX 1 EACH IV SCH (06:32)
[2020-08-11] MEDS: AZITHROMYCIN 250 MG TABLET PO SCH (08:05)
[2020-08-11] MEDS: cefTRIAXone 1,000 MG in SYRINGE 1 EACH IV SCH (08:05)
[2020-08-11] MEDS: FAMOTIDINE 20 MG TABLET PER TUBE SCH (08:06)
[2020-08-11] MEDS: DEXAMETHASONE 4 MG/1 ML VIAL IV SCH (08:06)
[2020-08-11] MEDS: ENOXAPARIN 60 MG/0.6 ML SYRINGE SUBCUT SCH ×2 (08:06→20:11)
[2020-08-11] MEDS: ASCORBIC ACID 500 MG TABLET PO SCH ×2 (08:06→20:11)
[2020-08-11] MEDS: MULTIVITAMIN LIQUID (CENTRUM) 60 ML BOTTLE PO SCH (08:06)
[2020-08-11] MEDS: CHOLECALCIFEROL 400 UNIT TABLET PO SCH ×2 (08:06→20:11)
[2020-08-11] MEDS: ZINC OXIDE 16% PASTE 57 GM TUBE TOP SCH ×2 (08:06→20:11)
[2020-08-11] MEDS: ZINC GLUCONATE 50 MG TABLET PO SCH (08:06)
[2020-08-11] MEDS ORDERED: CISATRACURIUM 10 MG/5 ML VIAL IV ONE (09:26)
[2020-08-11] MEDS ORDERED: DEXTROSE 5% 1,000 ML IV SCH (15:30)
[2020-08-11] MEDS: MINERAL OIL/PETROLATUM OPH OINT 3.5 GM TUBE BOTH EYES SCH (20:11)
[2020-08-12] MEDS: INSULIN REGULAR 100 UNIT/ML SUBCUT SCH ×4 (00:47→18:33)
[2020-08-12] MEDS: METOCLOPRAMIDE 10 MG/2 ML VIAL IV SCH ×4 (00:48→18:33)
[2020-08-12] MEDS: MIDAZOLAM 100 MG in DEXTROSE 5% 80 ML IV PRN ×2 (03:04→18:32)
[2020-08-12] MEDS: fentaNYL INJ 2,500 MCG in DEXTROSE 5% 450 ML IV PRN ×5 (03:53→22:29)
[2020-08-12 04:19] LABS: Basophils % 0.1 % (0.0-0.8); Eosinophils # 0.1 10*3/uL (0.0-0.87); Eosinophils % 0.3 % (0.00-10.9); Hemoglobin 8.5 GM/DL (12.0-16.0); Immature Granulocytes % 0.8 %; Immature Granulocytes Absolute 0.17 #; Lymphocytes # 3.1 10*3/uL (1.4-4.0); Lymphocytes % 14.8 % (21.3-54.2); Mean Corpuscular HGB Conc 31.5 GM/DL (32-36); Mean Corpuscular Volume 96.1 FL (87-102); Mean Platelet Volume 13.1 FL (9.6-12.0); Monocytes % 5.8 % (1.7-12.7); Neutrophils % 78.2 % (38.7-73.9); Platelet Count 257 T/CUMM (130-400); Red Blood Count 2.81 MC/CUMM (3.8-5.5); Red Cell Distribution Width 17.4 % (9.3-17.3); White Blood Count 21.1 T/CUMM (4-12)
[2020-08-12 04:29] LABS: Allen Test Positive; Pt O2 Delivery Device Ventilator
[2020-08-12 04:50] LABS: Hypochromasia 1+; Lymphocytes 13 % (20-55); Microcytosis 1+; Segmented Neutrophils 81 % (50-85); Total Cells Counted 100
[2020-08-12 04:51] LABS: Stomatocytes Slight
[2020-08-12 05:13] LABS: Albumin 2.8 G/DL (3.4-5.0); Bilirubin,Total 1.5 MG/DL (0.2-1.0); Osmolality,Calculated 285.5 MOS/KG (273-304); Total Protein 5.8 G/DL (6.4-8.3)
[2020-08-12 05:15] LABS: ABG Base Excess 7.1 MMOL/L (-2.5-2.5); ABG HCO3 30.9 MMOL/L (20-26); ABG Oxygen Saturation 95.7 % (95-100); ABG PCO2 51.5 MM HG (35-48); ABG PH 7.414 (7.35-7.45); ABG PO2 78.6 MM HG (80-95); ABG TCO2 30.2 MMOL/L (23-27)
[2020-08-12] MEDS: METOPROLOL TARTRATE 25 MG TABLET PER TUBE SCH ×2 (05:28→17:15)
[2020-08-12] MEDS ORDERED: MORPHINE 4 MG/1 ML VIAL ONE (07:40)
[2020-08-12] MEDS ORDERED: MORPHINE 4 MG/1 ML VIAL IV ONE (07:43)
[2020-08-12] MEDS: FAMOTIDINE 20 MG TABLET PER TUBE SCH (08:21)
[2020-08-12] MEDS: CHOLECALCIFEROL 400 UNIT TABLET PO SCH ×2 (08:21→20:20)
[2020-08-12] MEDS: ASCORBIC ACID 500 MG TABLET PO SCH ×2 (08:21→20:20)
[2020-08-12] MEDS: ZINC GLUCONATE 50 MG TABLET PO SCH (08:21)
[2020-08-12] MEDS: ENOXAPARIN 60 MG/0.6 ML SYRINGE SUBCUT SCH ×2 (08:22→20:20)
[2020-08-12] MEDS: DEXAMETHASONE 4 MG/1 ML VIAL IV SCH (08:22)
[2020-08-12] MEDS: ZINC OXIDE 16% PASTE 57 GM TUBE TOP SCH ×2 (09:32→20:20)
[2020-08-12] MEDS: MULTIVITAMIN LIQUID (CENTRUM) 60 ML BOTTLE PO SCH (09:32)
[2020-08-12] MEDS: FUROSEMIDE 40 MG/4 ML VIAL IV SCH (10:56)
[2020-08-12 11:10] LABS: Bacteria,Urine Occasional /HPF (Few); Bilirubin,Urine Negative (Negative); Blood, Urine Negative (Negative); Glucose,Urine (UA) Negative (Negative); Ketones,Urine Negative (Negative); Mucus,Urine Occasional /LPF (Occasional); Nitrite,Urine Negative (Negative); Protein,Urine Negative; Urine Appearance CLEAR (Clear); Urine Color Colorless (Yellow); Urine Specific Gravity 1.004 (1.001-1.035); Urine Urobilinogen < 2.0 EU/DL (0.2-1.0)
[2020-08-12] MEDS ORDERED: DEXAMETHASONE 4 MG/1 ML VIAL IV SCH (15:00)
[2020-08-12] MEDS: MINERAL OIL/PETROLATUM OPH OINT 3.5 GM TUBE BOTH EYES SCH (20:20)
[2020-08-12 23:31] LABS: Specimen Source BRONCH WASH
[2020-08-13] MEDS: METOCLOPRAMIDE 10 MG/2 ML VIAL IV SCH ×4 (00:48→18:08)
[2020-08-13] MEDS: INSULIN REGULAR 100 UNIT/ML SUBCUT SCH ×4 (00:48→18:08)
[2020-08-13] MEDS: fentaNYL INJ 2,500 MCG in DEXTROSE 5% 450 ML IV PRN ×5 (03:00→21:59)
[2020-08-13 04:49] LABS: Allen Test Positive; Pt O2 Delivery Device Ventilator
[2020-08-13 04:50] LABS: ABG Base Excess 8.5 MMOL/L (-2.5-2.5); ABG HCO3 32.3 MMOL/L (20-26); ABG Oxygen Saturation 98.6 % (95-100); ABG PCO2 58.8 MM HG (35-48); ABG PH 7.383 (7.35-7.45); ABG TCO2 32.6 MMOL/L (23-27)
[2020-08-13 04:53] LABS: Basophils % 0.1 % (0.0-0.8); Eosinophils # 0.1 10*3/uL (0.0-0.87); Eosinophils % 0.4 % (0.00-10.9); Hematocrit 26.3 VOL% (35.7-47.0); Hemoglobin 8.5 GM/DL (12.0-16.0); Immature Granulocytes % 0.9 %; Immature Granulocytes Absolute 0.18 #; Lymphocytes % 9.5 % (21.3-54.2); Mean Corpuscular HGB Conc 32.3 GM/DL (32-36); Mean Corpuscular Volume 93.6 FL (87-102); Mean Platelet Volume 13.4 FL (9.6-12.0); Monocytes % 3.8 % (1.7-12.7); NRBC # 0.22 10*3/uL; Neutrophils % 85.3 % (38.7-73.9); Platelet Count 257 T/CUMM (130-400); Red Blood Count 2.81 MC/CUMM (3.8-5.5); Red Cell Distribution Width 16.3 % (9.3-17.3); White Blood Count 20.8 T/CUMM (4-12)
[2020-08-13 05:08] LABS: Albumin 2.4 G/DL (3.4-5.0); Bilirubin,Total 0.6 MG/DL (0.2-1.0); Osmolality,Calculated 285.5 MOS/KG (273-304); Total Protein 5.7 G/DL (6.4-8.3)
[2020-08-13 05:22] LABS: Band Neutrophils 1 % (0-10); Lymphocytes 9 % (20-55); Nucleated Red Blood Cells 2 (0-5); Platelet Estimate Normal; Segmented Neutrophils 87 % (50-85); Total Cells Counted 100
[2020-08-13 05:23] LABS: Hypochromasia Slight
[2020-08-13] MEDS: METOPROLOL TARTRATE 25 MG TABLET PER TUBE SCH ×2 (05:40→16:04)
[2020-08-13] MEDS: DEXAMETHASONE 4 MG/1 ML VIAL IV SCH (08:40)
[2020-08-13] MEDS: ENOXAPARIN 60 MG/0.6 ML SYRINGE SUBCUT SCH ×2 (08:40→20:52)
[2020-08-13] MEDS: FUROSEMIDE 40 MG/4 ML VIAL IV SCH (08:40)
[2020-08-13] MEDS: MULTIVITAMIN LIQUID (CENTRUM) 60 ML BOTTLE PO SCH (09:17)
[2020-08-13] MEDS: ZINC OXIDE 16% PASTE 57 GM TUBE TOP SCH ×2 (09:17→20:52)
[2020-08-13] MEDS: ASCORBIC ACID 500 MG TABLET PO SCH ×2 (09:19→20:52)
[2020-08-13] MEDS: CHOLECALCIFEROL 400 UNIT TABLET PO SCH ×2 (09:19→20:52)
[2020-08-13] MEDS: FAMOTIDINE 20 MG TABLET PER TUBE SCH (09:20)
[2020-08-13] MEDS: ZINC GLUCONATE 50 MG TABLET PO SCH (09:20)
[2020-08-13] MEDS: MIDAZOLAM 100 MG in DEXTROSE 5% 80 ML IV PRN ×2 (09:20→22:00)
[2020-08-13] MEDS: INSULIN GLARGINE 100 UNIT/ML SUBCUT SCH (12:50)
[2020-08-13] MEDS: oxyCODONE IR 5 MG TABLET PER TUBE SCH (18:08)
[2020-08-13] MEDS: GABAPENTIN 50 MG/ML 30 ML/BOTTLE PO SCH (20:52)
[2020-08-13] MEDS: MINERAL OIL/PETROLATUM OPH OINT 3.5 GM TUBE BOTH EYES SCH (20:52)
[2020-08-14] MEDS: INSULIN REGULAR 100 UNIT/ML SUBCUT SCH ×4 (00:45→17:35)
[2020-08-14] MEDS: oxyCODONE IR 5 MG TABLET PER TUBE SCH ×2 (00:46→05:51)
[2020-08-14] MEDS: METOCLOPRAMIDE 10 MG/2 ML VIAL IV SCH ×4 (00:46→17:35)
[2020-08-14 03:15] LABS: ABG Base Excess 8.6 MMOL/L (-2.5-2.5); ABG HCO3 32.3 MMOL/L (20-26); ABG Oxygen Saturation 95.7 % (95-100); ABG PH 7.462 (7.35-7.45); ABG PO2 79.8 MM HG (80-95); ABG TCO2 30.1 MMOL/L (23-27); Allen Test Positive; Pt O2 Delivery Device Ventilator
[2020-08-14 03:44] LABS: Basophils % 0.1 % (0.0-0.8); Eosinophils # 0.2 10*3/uL (0.0-0.87); Hematocrit 24.7 VOL% (35.7-47.0); Hemoglobin 8.3 GM/DL (12.0-16.0); Immature Granulocytes % 0.9 %; Immature Granulocytes Absolute 0.15 #; Lymphocytes % 11.5 % (21.3-54.2); Mean Corpuscular HGB Conc 33.6 GM/DL (32-36); Mean Corpuscular Volume 91.1 FL (87-102); Monocytes % 4.4 % (1.7-12.7); NRBC # 0.07 10*3/uL; Neutrophils % 82.1 % (38.7-73.9); Platelet Count 398 T/CUMM (130-400); Red Blood Count 2.71 MC/CUMM (3.8-5.5); Red Cell Distribution Width 15.8 % (9.3-17.3); White Blood Count 17.1 T/CUMM (4-12)
[2020-08-14] MEDS: fentaNYL INJ 2,500 MCG in DEXTROSE 5% 450 ML IV PRN ×4 (04:08→17:27)
[2020-08-14 04:10] LABS: Alanine Aminotransferase 35 U/L (13-56); Albumin 2.3 G/DL (3.4-5.0); Alkaline Phosphatase 152 U/L (45-117); Aspartate Amino Transferase 18 U/L (0-37); Bilirubin,Total < 0.39 MG/DL (0.2-1.0); Blood Urea Nitrogen 24 MG/DL (7-18); Calcium 8.7 MG/DL (8.5-10.1); Estimated Glom Filtration Rate 104 ML/MIN; Glucose 208 MG/DL (74-106); Osmolality,Calculated 284.7 MOS/KG (273-304); Total Protein 5.8 G/DL (6.4-8.3)
[2020-08-14 04:26] LABS: Hypochromasia 1+; Microcytosis 1+; Platelet Estimate Adequate
[2020-08-14] MEDS: METOPROLOL TARTRATE 25 MG TABLET PER TUBE SCH (05:50)
[2020-08-14] MEDS: ZINC GLUCONATE 50 MG TABLET PO SCH (08:21)
[2020-08-14] MEDS: CHOLECALCIFEROL 400 UNIT TABLET PO SCH (08:21)
[2020-08-14] MEDS: FAMOTIDINE 20 MG TABLET PER TUBE SCH (08:21)
[2020-08-14] MEDS: ENOXAPARIN 60 MG/0.6 ML SYRINGE SUBCUT SCH (08:21)
[2020-08-14] MEDS: ASCORBIC ACID 500 MG TABLET PO SCH (08:21)
[2020-08-14] MEDS: ASPIRIN EC 81 MG TABLET PO SCH (08:21)
[2020-08-14] MEDS: FUROSEMIDE 40 MG/4 ML VIAL IV SCH (08:22)
[2020-08-14] MEDS: DEXAMETHASONE 4 MG/1 ML VIAL IV SCH (08:22)
[2020-08-14] MEDS: ZINC OXIDE 16% PASTE 57 GM TUBE TOP SCH ×2 (08:23→21:10)
[2020-08-14] MEDS: MULTIVITAMIN LIQUID (CENTRUM) 60 ML BOTTLE PO SCH (08:23)
[2020-08-14] MEDS: GABAPENTIN 50 MG/ML 30 ML/BOTTLE PO SCH ×3 (08:23→21:10)
[2020-08-14] MEDS: INSULIN GLARGINE 100 UNIT/ML SUBCUT SCH (08:23)
[2020-08-14] MEDS: PANTOPRAZOLE 40 MG VIAL IV SCH ×2 (12:11→21:10)
[2020-08-14] MEDS: MIDAZOLAM 100 MG in DEXTROSE 5% 80 ML IV PRN (12:30)
[2020-08-14] MEDS ORDERED: SODIUM CHLORIDE 0.9% 1,000 ML IV SCH (13:00)
[2020-08-14] MEDS ORDERED: MAGNESIUM SULF RIDER 2 GM in PREMIX 1 EACH IV PRN (14:59)
[2020-08-14] MEDS ORDERED: MAGNESIUM SULF RIDER 4 GM in PREMIX 1 EACH IV PRN (14:59)
[2020-08-14] MEDS ORDERED: AMINO ACIDS 10% IV SCH (17:00)
[2020-08-14] MEDS ORDERED: DEXTROSE 10% 1,000 ML IV PRN (17:00)
[2020-08-14] MEDS ORDERED: DEXTROSE 30% IV SCH (17:00)
[2020-08-14] MEDS: AZITHROMYCIN INJ 500 MG in SODIUM CHLORIDE 0.9% 250 ML IV SCH (17:12)
[2020-08-14] MEDS: cefTRIAXone 1,000 MG in SYRINGE 1 EACH IV SCH (17:12)
[2020-08-14] MEDS: MINERAL OIL/PETROLATUM OPH OINT 3.5 GM TUBE BOTH EYES SCH (21:10)
[2020-08-15] MEDS: fentaNYL INJ 2,500 MCG in DEXTROSE 5% 450 ML IV PRN ×4 (00:21→20:30)
[2020-08-15] MEDS: INSULIN REGULAR 100 UNIT/ML SUBCUT SCH ×4 (00:51→17:00)
[2020-08-15] MEDS: METOCLOPRAMIDE 10 MG/2 ML VIAL IV SCH ×4 (00:51→18:02)
[2020-08-15] MEDS: MIDAZOLAM 100 MG in DEXTROSE 5% 80 ML IV PRN ×2 (01:45→16:17)
[2020-08-15 04:06] LABS: ABG Base Excess 10.3 MMOL/L (-2.5-2.5); ABG HCO3 35.7 MMOL/L (20-26); ABG PCO2 49.7 MM HG (35-48); ABG PH 7.474 (7.35-7.45); ABG PO2 120.2 MM HG (80-95); ABG TCO2 37.2 MMOL/L (23-27); Allen Test Positive; Pt O2 Delivery Device Ventilator
[2020-08-15 04:08] LABS: ABG Oxygen Saturation 98.5 % (95-100)
[2020-08-15 05:45] LABS: Basophils % 0.3 % (0.0-0.8); Eosinophils # 0.2 10*3/uL (0.0-0.87); Eosinophils % 1.2 % (0.00-10.9); Hematocrit 24.8 VOL% (35.7-47.0); Hemoglobin 8.1 GM/DL (12.0-16.0); Immature Granulocytes % 0.5 %; Immature Granulocytes Absolute 0.08 #; Lymphocytes # 1.6 10*3/uL (1.4-4.0); Lymphocytes % 10.7 % (21.3-54.2); Mean Corpuscular HGB Conc 32.7 GM/DL (32-36); Mean Corpuscular Volume 91.9 FL (87-102); Mean Platelet Volume 12.8 FL (9.6-12.0); Monocytes % 6.8 % (1.7-12.7); NRBC # 0.03 10*3/uL; Neutrophils % 80.5 % (38.7-73.9); Platelet Count 462 T/CUMM (130-400); Red Cell Distribution Width 15.9 % (9.3-17.3); White Blood Count 14.6 T/CUMM (4-12)
[2020-08-15 06:15] LABS: Alanine Aminotransferase 29 U/L (13-56); Albumin 2.2 G/DL (3.4-5.0); Alkaline Phosphatase 113 U/L (45-117); Aspartate Amino Transferase 17 U/L (0-37); Blood Urea Nitrogen 24 MG/DL (7-18); Calcium 8.5 MG/DL (8.5-10.1); Estimated Glom Filtration Rate 111 ML/MIN; Glucose 178 MG/DL (74-106); Osmolality,Calculated 280.8 MOS/KG (273-304); Total Protein 5.8 G/DL (6.4-8.3)
[2020-08-15] MEDS: PANTOPRAZOLE 40 MG VIAL IV SCH ×2 (09:18→20:32)
[2020-08-15] MEDS: INSULIN GLARGINE 100 UNIT/ML SUBCUT SCH (09:18)
[2020-08-15] MEDS: DEXAMETHASONE 4 MG/1 ML VIAL IV SCH (09:18)
[2020-08-15] MEDS: CHOLECALCIFEROL 400 UNIT TABLET PO SCH ×2 (09:19→20:32)
[2020-08-15] MEDS: FAMOTIDINE 20 MG TABLET PER TUBE SCH (09:19)
[2020-08-15] MEDS: ZINC GLUCONATE 50 MG TABLET PO SCH (09:19)
[2020-08-15] MEDS: ASPIRIN EC 81 MG TABLET PO SCH (09:19)
[2020-08-15] MEDS: ZINC OXIDE 16% PASTE 57 GM TUBE TOP SCH ×2 (09:19→20:32)
[2020-08-15] MEDS: GABAPENTIN 50 MG/ML 30 ML/BOTTLE PO SCH ×3 (09:19→20:32)
[2020-08-15] MEDS: ASCORBIC ACID 500 MG TABLET PO SCH ×2 (09:19→20:32)
[2020-08-15] MEDS: POTASSIUM CHLORIDE 20 MEQ/15 ML UDCUP PER TUBE PRN ×3 (09:19→14:30)
[2020-08-15] MEDS: MULTIVITAMIN LIQUID (CENTRUM) 60 ML BOTTLE PO SCH (09:19)
[2020-08-15] MEDS ORDERED: SODIUM CHLORIDE 0.9% 1,000 ML IV ONE (10:52)
[2020-08-15] MEDS: oxyCODONE IR 5 MG TABLET PER TUBE SCH ×2 (11:25→18:02)
[2020-08-15] MEDS ORDERED: FAT EMULSION 20% 250 ML IV SCH (14:00)
[2020-08-15] MEDS: AZITHROMYCIN INJ 500 MG in SODIUM CHLORIDE 0.9% 250 ML IV SCH (16:30)
[2020-08-15] MEDS: cefTRIAXone 1,000 MG in SYRINGE 1 EACH IV SCH (17:00)
[2020-08-15] MEDS: MINERAL OIL/PETROLATUM OPH OINT 3.5 GM TUBE BOTH EYES SCH (20:32)
[2020-08-16] MEDS: oxyCODONE IR 5 MG TABLET PER TUBE SCH ×4 (00:15→18:05)
[2020-08-16] MEDS: INSULIN REGULAR 100 UNIT/ML SUBCUT SCH ×4 (00:15→17:46)
[2020-08-16] MEDS: METOCLOPRAMIDE 10 MG/2 ML VIAL IV SCH ×4 (00:15→17:46)
[2020-08-16] MEDS: fentaNYL INJ 2,500 MCG in DEXTROSE 5% 450 ML IV PRN ×3 (03:16→17:00)
[2020-08-16 04:24] LABS: ABG Base Excess 10.9 MMOL/L (-2.5-2.5); ABG HCO3 34.9 MMOL/L (20-26); ABG Oxygen Saturation 96.1 % (95-100); ABG PCO2 44.5 MM HG (35-48); ABG PH 7.512 (7.35-7.45); ABG PO2 79.1 MM HG (80-95); ABG TCO2 36.2 MMOL/L (23-27)
[2020-08-16 06:18] LABS: Basophils # 0.1 10*3/uL (0.0-0.2); Basophils % 0.3 % (0.0-0.8); Eosinophils # 0.3 10*3/uL (0.0-0.87); Eosinophils % 1.4 % (0.00-10.9); Hemoglobin 8.6 GM/DL (12.0-16.0); Immature Granulocytes Absolute 0.18 #; Lymphocytes # 2.9 10*3/uL (1.4-4.0); Lymphocytes % 15.4 % (21.3-54.2); Mean Corpuscular HGB Conc 31.9 GM/DL (32-36); Mean Corpuscular Volume 94.1 FL (87-102); Mean Platelet Volume 12.9 FL (9.6-12.0); Monocytes % 8.9 % (1.7-12.7); NRBC # 0.05 10*3/uL; Platelet Count 482 T/CUMM (130-400); Red Blood Count 2.87 MC/CUMM (3.8-5.5); Red Cell Distribution Width 16.5 % (9.3-17.3); White Blood Count 18.8 T/CUMM (4-12)
[2020-08-16 06:42] LABS: Calcium 8.3 MG/DL (8.5-10.1); Ferritin 701.7 ng/ml (8-252)
[2020-08-16] MEDS: MIDAZOLAM 100 MG in DEXTROSE 5% 80 ML IV PRN (07:05)
[2020-08-16] MEDS: INSULIN GLARGINE 100 UNIT/ML SUBCUT SCH (08:08)
[2020-08-16] MEDS: DEXAMETHASONE 4 MG/1 ML VIAL IV SCH (08:08)
[2020-08-16] MEDS: ZINC GLUCONATE 50 MG TABLET PO SCH (08:08)
[2020-08-16] MEDS: ASPIRIN EC 81 MG TABLET PO SCH (08:09)
[2020-08-16] MEDS: FAMOTIDINE 20 MG TABLET PER TUBE SCH (08:09)
[2020-08-16] MEDS: ASCORBIC ACID 500 MG TABLET PO SCH ×2 (08:09→20:07)
[2020-08-16] MEDS: CHOLECALCIFEROL 400 UNIT TABLET PO SCH ×2 (08:09→20:07)
[2020-08-16] MEDS: GABAPENTIN 50 MG/ML 30 ML/BOTTLE PO SCH ×3 (08:10→20:07)
[2020-08-16] MEDS: MULTIVITAMIN LIQUID (CENTRUM) 60 ML BOTTLE PO SCH (08:10)
[2020-08-16] MEDS: ZINC OXIDE 16% PASTE 57 GM TUBE TOP SCH ×2 (08:10→20:07)
[2020-08-16] MEDS: PANTOPRAZOLE 40 MG VIAL IV SCH ×2 (08:24→20:07)
[2020-08-16] MEDS ORDERED: cefTRIAXone 1,000 MG in SODIUM CHLORIDE 0.9% 100 ML IV SCH (09:00)
[2020-08-16] MEDS: SODIUM CHLORIDE 0.9% 1,000 ML IV SCH ×2 (09:00→22:03)
[2020-08-16] MEDS: DEXMEDETOMIDINE 200 MCG in SODIUM CHLORIDE 0.9% 48 ML IV PRN ×3 (12:30→23:31)
[2020-08-16] MEDS: VANCOMYCIN INJ 1,250 MG in SODIUM CHLORIDE 0.9% 250 ML IV SCH (12:56)
[2020-08-16] MEDS ORDERED: fentaNYL 25 MCG/HR PATCH TRANSDERM SCH (15:00)
[2020-08-16] MEDS: cefTRIAXone 1,000 MG in SYRINGE 1 EACH IV SCH (17:00)
[2020-08-16] MEDS: AZITHROMYCIN INJ 500 MG in SODIUM CHLORIDE 0.9% 250 ML IV SCH (17:55)
[2020-08-16] MEDS: DIAZEPAM 5 MG TABLET PO SCH (20:07)
[2020-08-16] MEDS: QUEtiapine 25 MG TABLET PO SCH (20:07)
[2020-08-16] MEDS: MINERAL OIL/PETROLATUM OPH OINT 3.5 GM TUBE BOTH EYES SCH (20:07)
[2020-08-16] MEDS: DEXMEDETOMIDINE 400 MCG in SODIUM CHLORIDE 0.9% 96 ML IV PRN (23:31)
[2020-08-17] MEDS: ACETAMINOPHEN 325 MG TABLET PO PRN ×3 (00:30→12:41)
[2020-08-17] MEDS: METOCLOPRAMIDE 10 MG/2 ML VIAL IV SCH ×4 (00:30→17:36)
[2020-08-17] MEDS: oxyCODONE IR 5 MG TABLET PER TUBE SCH ×4 (00:30→17:36)
[2020-08-17] MEDS: INSULIN REGULAR 100 UNIT/ML SUBCUT SCH ×4 (01:13→17:35)
[2020-08-17 04:28] LABS: Basophils # 0.1 10*3/uL (0.0-0.2); Basophils % 0.3 % (0.0-0.8); Eosinophils # 0.1 10*3/uL (0.0-0.87); Eosinophils % 0.7 % (0.00-10.9); Hemoglobin 8.4 GM/DL (12.0-16.0); Immature Granulocytes % 0.7 %; Immature Granulocytes Absolute 0.13 #; Lymphocytes # 2.7 10*3/uL (1.4-4.0); Mean Corpuscular HGB Conc 32.3 GM/DL (32-36); Mean Corpuscular Volume 93.5 FL (87-102); Mean Platelet Volume 12.5 FL (9.6-12.0); Monocytes % 9.2 % (1.7-12.7); NRBC # 0.03 10*3/uL; Neutrophils % 75.1 % (38.7-73.9); Platelet Count 495 T/CUMM (130-400); Red Blood Count 2.78 MC/CUMM (3.8-5.5); Red Cell Distribution Width 16.1 % (9.3-17.3)
[2020-08-17 04:37] LABS: ABG Base Excess 9.7 MMOL/L (-2.5-2.5); ABG HCO3 33.4 MMOL/L (20-26); ABG Oxygen Saturation 91.4 % (95-100); ABG PCO2 45.3 MM HG (35-48); ABG PH 7.486 (7.35-7.45); ABG PO2 59.2 MM HG (80-95); ABG TCO2 31.9 MMOL/L (23-27); Allen Test Positive; Pt O2 Delivery Device Ventilator
[2020-08-17 05:16] LABS: Alanine Aminotransferase 25 U/L (13-56); Albumin 2.1 G/DL (3.4-5.0); Alkaline Phosphatase 94 U/L (45-117); Aspartate Amino Transferase 19 U/L (0-37); Bilirubin,Total < 0.39 MG/DL (0.2-1.0); Blood Urea Nitrogen 19 MG/DL (7-18); Calcium 8.5 MG/DL (8.5-10.1); Estimated Glom Filtration Rate 120 ML/MIN; Glucose 139 MG/DL (74-106); Osmolality,Calculated 282.4 MOS/KG (273-304); Total Protein 5.8 G/DL (6.4-8.3)
[2020-08-17 06:34] LABS: ABG Base Excess 8.9 MMOL/L (-2.5-2.5); ABG HCO3 32.8 MMOL/L (20-26); ABG Oxygen Saturation 94.5 % (95-100); ABG PCO2 42.5 MM HG (35-48); ABG PH 7.506 (7.35-7.45); ABG PO2 70.2 MM HG (80-95); ABG TCO2 34.2 MMOL/L (23-27)
[2020-08-17] MEDS: fentaNYL INJ 2,500 MCG in DEXTROSE 5% 450 ML IV PRN ×2 (06:39→20:23)
[2020-08-17] MEDS: VANCOMYCIN INJ 1,250 MG in SODIUM CHLORIDE 0.9% 250 ML IV SCH (06:40)
[2020-08-17] MEDS: ZINC GLUCONATE 50 MG TABLET PO SCH (08:14)
[2020-08-17] MEDS: CHOLECALCIFEROL 400 UNIT TABLET PO SCH ×2 (08:14→20:05)
[2020-08-17] MEDS: DIAZEPAM 5 MG TABLET PO SCH ×2 (08:14→20:30)
[2020-08-17] MEDS: ASCORBIC ACID 500 MG TABLET PO SCH ×2 (08:14→20:05)
[2020-08-17] MEDS: FAMOTIDINE 20 MG TABLET PER TUBE SCH (08:14)
[2020-08-17] MEDS: ASPIRIN EC 81 MG TABLET PO SCH (08:14)
[2020-08-17] MEDS: QUEtiapine 25 MG TABLET PO SCH ×2 (08:14→20:30)
[2020-08-17] MEDS: DEXAMETHASONE 4 MG/1 ML VIAL IV SCH (08:15)
[2020-08-17] MEDS: INSULIN GLARGINE 100 UNIT/ML SUBCUT SCH (08:15)
[2020-08-17] MEDS: GABAPENTIN 50 MG/ML 30 ML/BOTTLE PO SCH ×3 (08:16→20:05)
[2020-08-17] MEDS: ZINC OXIDE 16% PASTE 57 GM TUBE TOP SCH ×2 (08:16→20:05)
[2020-08-17] MEDS: MULTIVITAMIN LIQUID (CENTRUM) 60 ML BOTTLE PO SCH (08:16)
[2020-08-17] MEDS: PANTOPRAZOLE 40 MG VIAL IV SCH (08:25)
[2020-08-17] MEDS ORDERED: fentaNYL 25 MCG/HR PATCH TRANSDERM SCH (09:00)
[2020-08-17] MEDS: DEXMEDETOMIDINE 400 MCG in SODIUM CHLORIDE 0.9% 96 ML IV PRN ×2 (09:30→18:16)
[2020-08-17] MEDS: SODIUM CHLORIDE 0.9% 1,000 ML IV SCH (12:44)
[2020-08-17] MEDS: AZITHROMYCIN INJ 500 MG in SODIUM CHLORIDE 0.9% 250 ML IV SCH (15:03)
[2020-08-17] MEDS: MEROPENEM 1,000 MG in SODIUM CHLORIDE 0.9% 100 ML IV SCH (16:30)
[2020-08-17] MEDS: ENOXAPARIN 60 MG/0.6 ML SYRINGE SUBCUT SCH (20:05)
[2020-08-17] MEDS: MINERAL OIL/PETROLATUM OPH OINT 3.5 GM TUBE BOTH EYES SCH (20:05)
[2020-08-18] MEDS: INSULIN REGULAR 100 UNIT/ML SUBCUT SCH ×4 (00:32→17:46)
[2020-08-18] MEDS: METOCLOPRAMIDE 10 MG/2 ML VIAL IV SCH ×4 (00:32→17:45)
[2020-08-18] MEDS: oxyCODONE IR 5 MG TABLET PER TUBE SCH ×4 (00:33→17:46)
[2020-08-18] MEDS: MEROPENEM 1,000 MG in SODIUM CHLORIDE 0.9% 100 ML IV SCH ×3 (00:39→16:00)
[2020-08-18 01:02] LABS: Basophils # 0.1 10*3/uL (0.0-0.2); Basophils % 0.4 % (0.0-0.8); Eosinophils # 0.1 10*3/uL (0.0-0.87); Eosinophils % 0.4 % (0.00-10.9); Hemoglobin 8.6 GM/DL (12.0-16.0); Immature Granulocytes % 0.8 %; Immature Granulocytes Absolute 0.18 #; Lymphocytes # 2.1 10*3/uL (1.4-4.0); Lymphocytes % 9.3 % (21.3-54.2); Mean Corpuscular HGB Conc 31.9 GM/DL (32-36); Mean Corpuscular Volume 94.4 FL (87-102); Mean Platelet Volume 11.7 FL (9.6-12.0); Monocytes % 7.8 % (1.7-12.7); NRBC # 0.02 10*3/uL; Neutrophils % 81.3 % (38.7-73.9); Platelet Count 532 T/CUMM (130-400); Red Blood Count 2.86 MC/CUMM (3.8-5.5); Red Cell Distribution Width 16.1 % (9.3-17.3); White Blood Count 22.6 T/CUMM (4-12)
[2020-08-18 01:14] LABS: Alanine Aminotransferase 26 U/L (13-56); Albumin 2.2 G/DL (3.4-5.0); Alkaline Phosphatase 92 U/L (45-117); Aspartate Amino Transferase 17 U/L (0-37); Bilirubin,Total < 0.39 MG/DL (0.2-1.0); Blood Urea Nitrogen 19 MG/DL (7-18); Calcium 8.3 MG/DL (8.5-10.1); Estimated Glom Filtration Rate 120 ML/MIN; Ferritin 688.7 ng/ml (8-252); Glucose 179 MG/DL (74-106); Osmolality,Calculated 282.5 MOS/KG (273-304); Total Protein 5.9 G/DL (6.4-8.3)
[2020-08-18] MEDS: VANCOMYCIN INJ 1,250 MG in SODIUM CHLORIDE 0.9% 250 ML IV SCH ×2 (02:07→14:18)
[2020-08-18] MEDS: SODIUM CHLORIDE 0.9% 1,000 ML IV SCH ×3 (02:16→22:15)
[2020-08-18 03:44] LABS: Anisocytosis 1+; Band Neutrophils 7 % (0-10); Eosinophils 2 % (0-10); Giant Platelets Few; Lymphocytes 11 % (20-55); Macrocytosis 1+; Platelet Estimate Increased; Polychromasia Few; Segmented Neutrophils 72 % (50-85); Total Cells Counted 100
[2020-08-18 04:00] LABS: ABG Base Excess 7.1 MMOL/L (-2.5-2.5); ABG HCO3 32.9 MMOL/L (20-26); ABG Oxygen Saturation 96.2 % (95-100); ABG PCO2 53.9 MM HG (35-48); ABG PH 7.404 (7.35-7.45); ABG TCO2 34.6 MMOL/L (23-27); Allen Test Positive; Pt O2 Delivery Device Ventilator
[2020-08-18] MEDS: ACETAMINOPHEN 325 MG TABLET PO PRN ×2 (05:53→10:16)
[2020-08-18] MEDS: ENOXAPARIN 60 MG/0.6 ML SYRINGE SUBCUT SCH ×2 (08:11→20:03)
[2020-08-18] MEDS: CHOLECALCIFEROL 400 UNIT TABLET PO SCH ×2 (08:12→20:03)
[2020-08-18] MEDS: FAMOTIDINE 20 MG TABLET PER TUBE SCH (08:12)
[2020-08-18] MEDS: DIAZEPAM 5 MG TABLET PO SCH ×2 (08:12→20:03)
[2020-08-18] MEDS: INSULIN GLARGINE 100 UNIT/ML SUBCUT SCH (08:12)
[2020-08-18] MEDS: ASCORBIC ACID 500 MG TABLET PO SCH ×2 (08:12→20:03)
[2020-08-18] MEDS: ASPIRIN EC 81 MG TABLET PO SCH (08:12)
[2020-08-18] MEDS: QUEtiapine 25 MG TABLET PO SCH ×2 (08:13→20:03)
[2020-08-18] MEDS: ZINC OXIDE 16% PASTE 57 GM TUBE TOP SCH ×2 (08:13→20:03)
[2020-08-18] MEDS: DEXAMETHASONE 4 MG/1 ML VIAL IV SCH (08:13)
[2020-08-18] MEDS: ZINC GLUCONATE 50 MG TABLET PO SCH (08:13)
[2020-08-18] MEDS: GABAPENTIN 50 MG/ML 30 ML/BOTTLE PO SCH ×3 (08:14→20:03)
[2020-08-18] MEDS: MULTIVITAMIN LIQUID (CENTRUM) 60 ML BOTTLE PO SCH (09:06)
[2020-08-18] MEDS: METOPROLOL TARTRATE 5 MG/5 ML VIAL IV PRN (10:16)
[2020-08-18] MEDS ORDERED: SALIVA SUBSTITUTE SPRAY 60 ML CAN SWISH/SWAL PRN (11:01)
[2020-08-18] MEDS: fentaNYL INJ 2,500 MCG in DEXTROSE 5% 450 ML IV PRN (11:35)
[2020-08-18] MEDS: IBUPROFEN 100 MG/5 ML UDCUP PO PRN (12:03)
[2020-08-18] MEDS: METOPROLOL TARTRATE 25 MG TABLET PO SCH ×2 (12:04→20:03)
[2020-08-18] MEDS: DEXMEDETOMIDINE 400 MCG in SODIUM CHLORIDE 0.9% 96 ML IV PRN ×2 (12:51→21:25)
[2020-08-18] MEDS: AZITHROMYCIN INJ 500 MG in SODIUM CHLORIDE 0.9% 250 ML IV SCH (16:05)
[2020-08-18] MEDS: MIDAZOLAM 100 MG in DEXTROSE 5% 80 ML IV PRN (17:48)
[2020-08-18] MEDS: MINERAL OIL/PETROLATUM OPH OINT 3.5 GM TUBE BOTH EYES SCH (20:03)
[2020-08-19] MEDS: MEROPENEM 1,000 MG in SODIUM CHLORIDE 0.9% 100 ML IV SCH ×3 (00:03→15:50)
[2020-08-19] MEDS: SODIUM CHLORIDE 0.9% 1,000 ML IV SCH ×3 (00:30→21:55)
[2020-08-19] MEDS: METOCLOPRAMIDE 10 MG/2 ML VIAL IV SCH ×4 (00:45→17:29)
[2020-08-19] MEDS: oxyCODONE IR 5 MG TABLET PER TUBE SCH ×4 (00:45→17:29)
[2020-08-19] MEDS: IBUPROFEN 100 MG/5 ML UDCUP PO PRN ×2 (00:45→11:26)
[2020-08-19] MEDS: INSULIN REGULAR 100 UNIT/ML SUBCUT SCH ×4 (02:11→17:29)
[2020-08-19] MEDS: VANCOMYCIN INJ 1,250 MG in SODIUM CHLORIDE 0.9% 250 ML IV SCH ×2 (02:34→13:38)
[2020-08-19] MEDS: fentaNYL INJ 2,500 MCG in DEXTROSE 5% 450 ML IV PRN (03:16)
[2020-08-19 03:28] LABS: ABG HCO3 32.6 MMOL/L (20-26); ABG PCO2 40.9 MM HG (35-48); ABG PO2 70.2 MM HG (80-95); ABG TCO2 33.9 MMOL/L (23-27)
[2020-08-19 03:43] LABS: ABG Oxygen Saturation 95.6 % (95-100)
[2020-08-19 05:19] LABS: Basophils # 0.1 10*3/uL (0.0-0.2); Basophils % 0.4 % (0.0-0.8); Eosinophils # 0.4 10*3/uL (0.0-0.87); Eosinophils % 2.4 % (0.00-10.9); Hematocrit 22.7 VOL% (35.7-47.0); Hemoglobin 7.3 GM/DL (12.0-16.0); Immature Granulocytes % 0.5 %; Immature Granulocytes Absolute 0.08 #; Lymphocytes # 2.6 10*3/uL (1.4-4.0); Mean Corpuscular HGB Conc 32.2 GM/DL (32-36); Mean Corpuscular Volume 94.2 FL (87-102); Mean Platelet Volume 12.5 FL (9.6-12.0); Monocytes % 7.3 % (1.7-12.7); NRBC # 0.04 10*3/uL; Neutrophils % 72.4 % (38.7-73.9); Platelet Count 472 T/CUMM (130-400); Red Blood Count 2.41 MC/CUMM (3.8-5.5); Red Cell Distribution Width 15.8 % (9.3-17.3); White Blood Count 15.3 T/CUMM (4-12)
[2020-08-19 05:47] LABS: Calcium 8.1 MG/DL (8.5-10.1)
[2020-08-19 06:37] LABS: Anisocytosis 1+; Platelet Estimate Normal
[2020-08-19 06:38] LABS: Basophilic Stippling Slight
[2020-08-19] MEDS: DEXMEDETOMIDINE 400 MCG in SODIUM CHLORIDE 0.9% 96 ML IV PRN (07:01)
[2020-08-19] MEDS ORDERED: FUROSEMIDE 40 MG/4 ML VIAL IV ONE (08:06)
[2020-08-19] MEDS: ENOXAPARIN 60 MG/0.6 ML SYRINGE SUBCUT SCH ×2 (08:10→20:18)
[2020-08-19] MEDS: POTASSIUM CHLORIDE 20 MEQ/15 ML UDCUP PER TUBE PRN ×4 (08:10→17:29)
[2020-08-19] MEDS: DIAZEPAM 5 MG TABLET PO SCH ×2 (08:11→20:18)
[2020-08-19] MEDS: CHOLECALCIFEROL 400 UNIT TABLET PO SCH ×2 (08:11→20:17)
[2020-08-19] MEDS: FAMOTIDINE 20 MG TABLET PER TUBE SCH ×2 (08:11→20:17)
[2020-08-19] MEDS: ZINC GLUCONATE 50 MG TABLET PO SCH (08:11)
[2020-08-19] MEDS: ASCORBIC ACID 500 MG TABLET PO SCH ×2 (08:11→20:17)
[2020-08-19] MEDS: GABAPENTIN 50 MG/ML 30 ML/BOTTLE PO SCH ×3 (08:11→21:55)
[2020-08-19] MEDS: DEXAMETHASONE 4 MG/1 ML VIAL IV SCH (08:12)
[2020-08-19] MEDS: ASPIRIN EC 81 MG TABLET PO SCH (08:12)
[2020-08-19] MEDS: QUEtiapine 25 MG TABLET PO SCH (08:12)
[2020-08-19] MEDS: INSULIN GLARGINE 100 UNIT/ML SUBCUT SCH (08:13)
[2020-08-19] MEDS: METOPROLOL TARTRATE 25 MG TABLET PO SCH ×3 (08:13→20:17)
[2020-08-19] MEDS: ZINC OXIDE 16% PASTE 57 GM TUBE TOP SCH ×2 (08:13→21:55)
[2020-08-19] MEDS: MULTIVITAMIN LIQUID (CENTRUM) 60 ML BOTTLE PO SCH (11:16)
[2020-08-19] MEDS: fentaNYL 50 MCG/HR PATCH TRANSDERM SCH (15:50)
[2020-08-19] MEDS: acetaZOLAMIDE 250 MG TABLET PO SCH (15:50)
[2020-08-19] MEDS: QUEtiapine 100 MG TABLET PO SCH ×2 (15:50→20:17)
[2020-08-19] MEDS: MINERAL OIL/PETROLATUM OPH OINT 3.5 GM TUBE BOTH EYES SCH (21:55)
[2020-08-20] MEDS: MEROPENEM 1,000 MG in SODIUM CHLORIDE 0.9% 100 ML IV SCH ×4 (00:20→23:16)
[2020-08-20] MEDS: INSULIN REGULAR 100 UNIT/ML SUBCUT SCH ×4 (00:21→17:33)
[2020-08-20] MEDS: METOCLOPRAMIDE 10 MG/2 ML VIAL IV SCH ×4 (01:03→17:34)
[2020-08-20] MEDS: oxyCODONE IR 5 MG TABLET PER TUBE SCH ×4 (01:04→17:34)
[2020-08-20] MEDS: MIDAZOLAM 100 MG in DEXTROSE 5% 80 ML IV PRN (01:04)
[2020-08-20] MEDS: VANCOMYCIN INJ 1,250 MG in SODIUM CHLORIDE 0.9% 250 ML IV SCH ×2 (03:05→15:17)
[2020-08-20 03:32] LABS: ABG HCO3 29.2 MMOL/L (20-26); ABG Oxygen Saturation 96.4 % (95-100); ABG PCO2 41.6 MM HG (35-48); ABG PH 7.464 (7.35-7.45); ABG PO2 86.9 MM HG (80-95); ABG TCO2 30.5 MMOL/L (23-27)
[2020-08-20 05:59] LABS: Basophils # 0.1 10*3/uL (0.0-0.2); Basophils % 0.6 % (0.0-0.8); Eosinophils # 0.5 10*3/uL (0.0-0.87); Eosinophils % 3.4 % (0.00-10.9); Hemoglobin 7.7 GM/DL (12.0-16.0); Immature Granulocytes % 0.6 %; Immature Granulocytes Absolute 0.09 #; Lymphocytes # 2.8 10*3/uL (1.4-4.0); Lymphocytes % 20.2 % (21.3-54.2); Mean Corpuscular HGB Conc 32.1 GM/DL (32-36); Mean Corpuscular Volume 93.8 FL (87-102); Mean Platelet Volume 11.6 FL (9.6-12.0); Monocytes % 9.5 % (1.7-12.7); NRBC # 0.02 10*3/uL; Neutrophils % 65.7 % (38.7-73.9); Platelet Count 561 T/CUMM (130-400); Red Blood Count 2.56 MC/CUMM (3.8-5.5); Red Cell Distribution Width 15.8 % (9.3-17.3); White Blood Count 13.9 T/CUMM (4-12)
[2020-08-20 06:32] LABS: Calcium 8.4 MG/DL (8.5-10.1); Osmolality,Calculated 287.8 MOS/KG (273-304)
[2020-08-20] MEDS: SODIUM CHLORIDE 0.9% 1,000 ML IV SCH ×3 (06:45→23:16)
[2020-08-20] MEDS: INSULIN GLARGINE 100 UNIT/ML SUBCUT SCH (08:10)
[2020-08-20] MEDS: ENOXAPARIN 60 MG/0.6 ML SYRINGE SUBCUT SCH ×2 (08:11→20:00)
[2020-08-20] MEDS: DEXAMETHASONE 4 MG/1 ML VIAL IV SCH (08:11)
[2020-08-20] MEDS: METOPROLOL TARTRATE 25 MG TABLET PO SCH ×2 (08:11→20:01)
[2020-08-20] MEDS: ASCORBIC ACID 500 MG TABLET PO SCH ×2 (08:11→20:01)
[2020-08-20] MEDS: QUEtiapine 100 MG TABLET PO SCH ×2 (08:11→20:01)
[2020-08-20] MEDS: ZINC OXIDE 16% PASTE 57 GM TUBE TOP SCH ×2 (08:12→20:01)
[2020-08-20] MEDS: acetaZOLAMIDE 250 MG TABLET PO SCH (08:12)
[2020-08-20] MEDS: ZINC GLUCONATE 50 MG TABLET PO SCH (08:12)
[2020-08-20] MEDS: ASPIRIN EC 81 MG TABLET PO SCH (08:12)
[2020-08-20] MEDS: MULTIVITAMIN LIQUID (CENTRUM) 60 ML BOTTLE PO SCH (08:12)
[2020-08-20] MEDS: CHOLECALCIFEROL 400 UNIT TABLET PO SCH ×2 (08:12→20:01)
[2020-08-20] MEDS: DIAZEPAM 5 MG TABLET PO SCH ×2 (08:12→20:00)
[2020-08-20] MEDS: FAMOTIDINE 20 MG TABLET PER TUBE SCH ×2 (08:12→20:00)
[2020-08-20] MEDS: GABAPENTIN 50 MG/ML 30 ML/BOTTLE PO SCH ×3 (08:13→20:05)
[2020-08-20] MEDS: POTASSIUM CHLORIDE 20 MEQ/15 ML UDCUP PER TUBE PRN ×2 (12:00→16:30)
[2020-08-20] MEDS: MINERAL OIL/PETROLATUM OPH OINT 3.5 GM TUBE BOTH EYES SCH (20:05)
[2020-08-21] MEDS: oxyCODONE IR 5 MG TABLET PER TUBE SCH ×4 (00:40→17:41)
[2020-08-21] MEDS: METOCLOPRAMIDE 10 MG/2 ML VIAL IV SCH ×4 (00:40→17:41)
[2020-08-21] MEDS: INSULIN REGULAR 100 UNIT/ML SUBCUT SCH ×4 (00:40→17:42)
[2020-08-21] MEDS: VANCOMYCIN INJ 1,250 MG in SODIUM CHLORIDE 0.9% 250 ML IV SCH ×2 (02:40→13:56)
[2020-08-21 04:49] LABS: Basophils # 0.1 10*3/uL (0.0-0.2); Basophils % 0.7 % (0.0-0.8); Eosinophils # 0.6 10*3/uL (0.0-0.87); Eosinophils % 4.5 % (0.00-10.9); Hematocrit 25.6 VOL% (35.7-47.0); Hemoglobin 8.1 GM/DL (12.0-16.0); Immature Granulocytes % 0.5 %; Immature Granulocytes Absolute 0.07 #; Lymphocytes # 2.6 10*3/uL (1.4-4.0); Mean Corpuscular HGB Conc 31.6 GM/DL (32-36); Mean Corpuscular Volume 94.5 FL (87-102); Mean Platelet Volume 12.5 FL (9.6-12.0); Monocytes % 10.7 % (1.7-12.7); NRBC # 0.02 10*3/uL; Neutrophils % 64.6 % (38.7-73.9); Platelet Count 443 T/CUMM (130-400); Red Blood Count 2.71 MC/CUMM (3.8-5.5); Red Cell Distribution Width 16.1 % (9.3-17.3); White Blood Count 13.7 T/CUMM (4-12)
[2020-08-21 05:04] LABS: ABG Oxygen Saturation 96.4 % (95-100); ABG PCO2 42.9 MM HG (35-48); ABG PO2 87.1 MM HG (80-95); ABG TCO2 27.3 MMOL/L (23-27); Allen Test Positive; Pt O2 Delivery Device Ventilator
[2020-08-21 05:27] LABS: Calcium 8.7 MG/DL (8.5-10.1); Osmolality,Calculated 288.6 MOS/KG (273-304)
[2020-08-21] MEDS: MEROPENEM 1,000 MG in SODIUM CHLORIDE 0.9% 100 ML IV SCH ×3 (06:55→22:54)
[2020-08-21] MEDS ORDERED: FUROSEMIDE 40 MG/4 ML VIAL IV ONE (07:34)
[2020-08-21] MEDS: ASPIRIN EC 81 MG TABLET PO SCH (08:05)
[2020-08-21] MEDS: DIAZEPAM 5 MG TABLET PO SCH ×2 (08:05→21:22)
[2020-08-21] MEDS: ENOXAPARIN 60 MG/0.6 ML SYRINGE SUBCUT SCH ×2 (08:05→21:21)
[2020-08-21] MEDS: acetaZOLAMIDE 250 MG TABLET PO SCH (08:05)
[2020-08-21] MEDS: FAMOTIDINE 20 MG TABLET PER TUBE SCH ×2 (08:05→21:21)
[2020-08-21] MEDS: GABAPENTIN 50 MG/ML 30 ML/BOTTLE PO SCH ×3 (08:05→21:20)
[2020-08-21] MEDS: ZINC GLUCONATE 50 MG TABLET PO SCH (08:05)
[2020-08-21] MEDS: ASCORBIC ACID 500 MG TABLET PO SCH ×2 (08:06→21:21)
[2020-08-21] MEDS: METOPROLOL TARTRATE 25 MG TABLET PO SCH ×2 (08:06→21:22)
[2020-08-21] MEDS: QUEtiapine 100 MG TABLET PO SCH ×2 (08:06→21:22)
[2020-08-21] MEDS: CHOLECALCIFEROL 400 UNIT TABLET PO SCH ×2 (08:06→21:22)
[2020-08-21] MEDS: POTASSIUM CHLORIDE 20 MEQ/15 ML UDCUP PER TUBE PRN ×3 (08:06→14:46)
[2020-08-21] MEDS: MULTIVITAMIN LIQUID (CENTRUM) 60 ML BOTTLE PO SCH (08:07)
[2020-08-21] MEDS: DEXAMETHASONE 4 MG/1 ML VIAL IV SCH (08:07)
[2020-08-21] MEDS: ZINC OXIDE 16% PASTE 57 GM TUBE TOP SCH ×2 (08:07→21:20)
[2020-08-21] MEDS: INSULIN GLARGINE 100 UNIT/ML SUBCUT SCH (08:07)
[2020-08-21] MEDS: IBUPROFEN 100 MG/5 ML UDCUP PO PRN (17:41)
[2020-08-21] MEDS: MINERAL OIL/PETROLATUM OPH OINT 3.5 GM TUBE BOTH EYES SCH (21:22)
[2020-08-22] MEDS: INSULIN REGULAR 100 UNIT/ML SUBCUT SCH ×4 (00:21→17:22)
[2020-08-22] MEDS: METOCLOPRAMIDE 10 MG/2 ML VIAL IV SCH ×4 (00:42→17:22)
[2020-08-22] MEDS: oxyCODONE IR 5 MG TABLET PER TUBE SCH ×5 (00:42→20:56)
[2020-08-22] MEDS: VANCOMYCIN INJ 1,250 MG in SODIUM CHLORIDE 0.9% 250 ML IV SCH ×3 (02:17→21:30)
[2020-08-22] MEDS: METOPROLOL TARTRATE 5 MG/5 ML VIAL IV PRN (02:26)
[2020-08-22 04:50] LABS: Basophils # 0.1 10*3/uL (0.0-0.2); Basophils % 0.4 % (0.0-0.8); Eosinophils # 0.5 10*3/uL (0.0-0.87); Hematocrit 25.8 VOL% (35.7-47.0); Hemoglobin 8.3 GM/DL (12.0-16.0); Immature Granulocytes % 0.7 %; Immature Granulocytes Absolute 0.18 #; Lymphocytes # 1.8 10*3/uL (1.4-4.0); Lymphocytes % 6.5 % (21.3-54.2); Mean Corpuscular HGB Conc 32.2 GM/DL (32-36); Mean Corpuscular Volume 92.8 FL (87-102); Mean Platelet Volume 10.7 FL (9.6-12.0); Monocytes % 4.9 % (1.7-12.7); NRBC # 0.02 10*3/uL; Neutrophils % 85.5 % (38.7-73.9); Platelet Count 636 T/CUMM (130-400); Red Blood Count 2.78 MC/CUMM (3.8-5.5); Red Cell Distribution Width 15.9 % (9.3-17.3); White Blood Count 26.8 T/CUMM (4-12)
[2020-08-22 04:50] LABS: ABG Base Excess 1.6 MMOL/L (-2.5-2.5); ABG HCO3 25.8 MMOL/L (20-26); ABG Oxygen Saturation 97.3 % (95-100); ABG PCO2 37.1 MM HG (35-48); ABG PH 7.446 (7.35-7.45); ABG TCO2 23.7 MMOL/L (23-27); Allen Test Positive; Pt O2 Delivery Device Ventilator
[2020-08-22 05:26] LABS: Calcium 8.9 MG/DL (8.5-10.1); Osmolality,Calculated 289.7 MOS/KG (273-304)
[2020-08-22 05:31] LABS: Eosinophils 2 % (0-10); Lymphocytes 9 % (20-55); Platelet Estimate Increased; Segmented Neutrophils 85 % (50-85); Total Cells Counted 100
[2020-08-22 05:32] LABS: Hypochromasia Slight
[2020-08-22] MEDS: POTASSIUM CHLORIDE 20 MEQ/15 ML UDCUP PER TUBE PRN ×2 (06:02→08:05)
[2020-08-22] MEDS: MEROPENEM 1,000 MG in SODIUM CHLORIDE 0.9% 100 ML IV SCH ×3 (06:23→23:50)
[2020-08-22] MEDS: INSULIN GLARGINE 100 UNIT/ML SUBCUT SCH (08:05)
[2020-08-22] MEDS: ENOXAPARIN 60 MG/0.6 ML SYRINGE SUBCUT SCH ×2 (08:05→20:58)
[2020-08-22] MEDS: fentaNYL 50 MCG/HR PATCH TRANSDERM SCH (08:05)
[2020-08-22] MEDS: ASPIRIN EC 81 MG TABLET PO SCH (08:06)
[2020-08-22] MEDS: DIAZEPAM 5 MG TABLET PO SCH ×2 (08:06→20:57)
[2020-08-22] MEDS: CHOLECALCIFEROL 400 UNIT TABLET PO SCH ×2 (08:06→20:57)
[2020-08-22] MEDS: acetaZOLAMIDE 250 MG TABLET PO SCH (08:06)
[2020-08-22] MEDS: FAMOTIDINE 20 MG TABLET PER TUBE SCH ×2 (08:06→20:57)
[2020-08-22] MEDS: ASCORBIC ACID 500 MG TABLET PO SCH ×2 (08:06→20:58)
[2020-08-22] MEDS: QUEtiapine 100 MG TABLET PO SCH (08:06)
[2020-08-22] MEDS: METOPROLOL TARTRATE 25 MG TABLET PO SCH ×2 (08:06→20:58)
[2020-08-22] MEDS: ZINC GLUCONATE 50 MG TABLET PO SCH (08:06)
[2020-08-22] MEDS: ZINC OXIDE 16% PASTE 57 GM TUBE TOP SCH ×2 (08:06→21:00)
[2020-08-22] MEDS: predniSONE 5 MG TABLET PER TUBE SCH (08:06)
[2020-08-22] MEDS: GABAPENTIN 50 MG/ML 30 ML/BOTTLE PO SCH ×3 (08:07→22:03)
[2020-08-22] MEDS: MULTIVITAMIN LIQUID (CENTRUM) 60 ML BOTTLE PO SCH (08:07)
[2020-08-22 09:51] LABS: Bilirubin,Urine Negative (Negative); Blood, Urine Negative (Negative); Glucose,Urine (UA) Negative (Negative); Ketones,Urine Negative (Negative); Mucus,Urine Occasional /LPF (Occasional); Nitrite,Urine Negative (Negative); Protein,Urine Negative; RBC,Urine 20 /HPF (0-4); Urine Appearance CLOUDY (Clear); Urine Color Yellow (Yellow); Urine Specific Gravity 1.023 (1.001-1.035); Urine Urobilinogen < 2.0 EU/DL (0.2-1.0)
[2020-08-22] MEDS: fentaNYL 25 MCG/HR PATCH TRANSDERM SCH (17:21)
[2020-08-22] MEDS: FUROSEMIDE 40 MG/4 ML VIAL IV SCH (17:21)
[2020-08-22 17:53] LABS: ABG Base Excess 3.7 MMOL/L (-2.5-2.5); ABG HCO3 27.5 MMOL/L (20-26); ABG PCO2 37.8 MM HG (35-48); ABG PH 7.479 (7.35-7.45); ABG TCO2 28.6 MMOL/L (23-27)
[2020-08-22] MEDS: QUEtiapine 25 MG TABLET PO SCH (20:57)
[2020-08-22] MEDS ORDERED: DIAZEPAM 5 MG TABLET PO SCH (21:00)
[2020-08-22] MEDS: MINERAL OIL/PETROLATUM OPH OINT 3.5 GM TUBE BOTH EYES SCH (22:03)
[2020-08-23] MEDS: METOCLOPRAMIDE 10 MG/2 ML VIAL IV SCH ×4 (00:30→18:17)
[2020-08-23] MEDS: INSULIN REGULAR 100 UNIT/ML SUBCUT SCH ×4 (02:03→17:47)
[2020-08-23 03:42] LABS: ABG Base Excess 2.5 MMOL/L (-2.5-2.5); ABG HCO3 26.7 MMOL/L (20-26); ABG Oxygen Saturation 97.3 % (95-100); ABG PCO2 38.6 MM HG (35-48); ABG PH 7.447 (7.35-7.45); ABG PO2 89.4 MM HG (80-95); ABG TCO2 24.8 MMOL/L (23-27); Allen Test Positive; Pt O2 Delivery Device Ventilator
[2020-08-23 03:56] LABS: Basophils # 0.1 10*3/uL (0.0-0.2); Basophils % 0.5 % (0.0-0.8); Eosinophils # 0.9 10*3/uL (0.0-0.87); Eosinophils % 5.2 % (0.00-10.9); Hematocrit 27.2 VOL% (35.7-47.0); Hemoglobin 8.5 GM/DL (12.0-16.0); Immature Granulocytes % 0.7 %; Immature Granulocytes Absolute 0.13 #; Lymphocytes # 2.4 10*3/uL (1.4-4.0); Lymphocytes % 13.3 % (21.3-54.2); Mean Corpuscular HGB Conc 31.3 GM/DL (32-36); Mean Corpuscular Volume 94.4 FL (87-102); Mean Platelet Volume 11.8 FL (9.6-12.0); Monocytes % 7.1 % (1.7-12.7); Neutrophils % 73.2 % (38.7-73.9); Platelet Count 483 T/CUMM (130-400); Red Blood Count 2.88 MC/CUMM (3.8-5.5)
[2020-08-23] MEDS: METOPROLOL TARTRATE 5 MG/5 ML VIAL IV PRN ×2 (04:00→10:20)
[2020-08-23] MEDS: oxyCODONE IR 5 MG TABLET PER TUBE SCH ×4 (04:32→20:20)
[2020-08-23] MEDS: MEROPENEM 1,000 MG in SODIUM CHLORIDE 0.9% 100 ML IV SCH ×3 (06:46→22:20)
[2020-08-23] MEDS: POTASSIUM CHLORIDE 20 MEQ/15 ML UDCUP PER TUBE PRN ×4 (06:47→15:00)
[2020-08-23] MEDS: ASPIRIN EC 81 MG TABLET PO SCH (08:48)
[2020-08-23] MEDS: ASCORBIC ACID 500 MG TABLET PO SCH ×2 (08:48→20:20)
[2020-08-23] MEDS: predniSONE 5 MG TABLET PER TUBE SCH (08:48)
[2020-08-23] MEDS: acetaZOLAMIDE 250 MG TABLET PO SCH (08:49)
[2020-08-23] MEDS: ZINC GLUCONATE 50 MG TABLET PO SCH (08:49)
[2020-08-23] MEDS: FAMOTIDINE 20 MG TABLET PER TUBE SCH ×2 (08:49→20:20)
[2020-08-23] MEDS: METOPROLOL TARTRATE 25 MG TABLET PO SCH ×2 (08:50→20:24)
[2020-08-23] MEDS: DIAZEPAM 5 MG TABLET PO SCH ×2 (08:50→20:20)
[2020-08-23] MEDS: GABAPENTIN 50 MG/ML 30 ML/BOTTLE PO SCH ×3 (08:50→20:21)
[2020-08-23] MEDS: CHOLECALCIFEROL 400 UNIT TABLET PO SCH ×2 (08:50→20:20)
[2020-08-23] MEDS: QUEtiapine 25 MG TABLET PO SCH ×2 (08:50→20:20)
[2020-08-23] MEDS: ENOXAPARIN 60 MG/0.6 ML SYRINGE SUBCUT SCH ×2 (08:51→20:21)
[2020-08-23] MEDS: INSULIN GLARGINE 100 UNIT/ML SUBCUT SCH (08:51)
[2020-08-23] MEDS: MULTIVITAMIN LIQUID (CENTRUM) 60 ML BOTTLE PO SCH (08:51)
[2020-08-23] MEDS: ZINC OXIDE 16% PASTE 57 GM TUBE TOP SCH ×2 (08:52→20:21)
[2020-08-23] MEDS: FUROSEMIDE 40 MG/4 ML VIAL IV SCH ×2 (08:52→16:50)
[2020-08-23] MEDS: VANCOMYCIN INJ 1,250 MG in SODIUM CHLORIDE 0.9% 250 ML IV SCH ×2 (11:28→20:22)
[2020-08-23] MEDS ORDERED: POTASSIUM CHLORIDE 20 MEQ/15 ML UDCUP PO SCH (17:30)
[2020-08-23] MEDS: LOSARTAN 25 MG TABLET PO SCH (20:20)
[2020-08-23] MEDS: MINERAL OIL/PETROLATUM OPH OINT 3.5 GM TUBE BOTH EYES SCH (20:21)
[2020-08-23] MEDS ORDERED: LOSARTAN 25 MG TABLET PO SCH (21:00)
[2020-08-24] MEDS: INSULIN REGULAR 100 UNIT/ML SUBCUT SCH ×4 (00:37→18:25)
[2020-08-24] MEDS: METOCLOPRAMIDE 10 MG/2 ML VIAL IV SCH ×4 (00:37→18:26)
[2020-08-24] MEDS: METOPROLOL TARTRATE 5 MG/5 ML VIAL IV PRN ×2 (02:49→18:31)
[2020-08-24 04:36] LABS: Basophils # 0.1 10*3/uL (0.0-0.2); Basophils % 0.6 % (0.0-0.8); Eosinophils # 0.9 10*3/uL (0.0-0.87); Eosinophils % 5.9 % (0.00-10.9); Hematocrit 25.8 VOL% (35.7-47.0); Hemoglobin 7.9 GM/DL (12.0-16.0); Immature Granulocytes % 0.6 %; Immature Granulocytes Absolute 0.08 #; Lymphocytes # 1.9 10*3/uL (1.4-4.0); Lymphocytes % 13.6 % (21.3-54.2); Mean Corpuscular HGB Conc 30.6 GM/DL (32-36); Mean Corpuscular Volume 95.6 FL (87-102); Neutrophils % 69.3 % (38.7-73.9); Platelet Count 541 T/CUMM (130-400); Red Cell Distribution Width 16.2 % (9.3-17.3); White Blood Count 14.3 T/CUMM (4-12)
[2020-08-24] MEDS: oxyCODONE IR 5 MG TABLET PER TUBE SCH ×4 (04:37→20:09)
[2020-08-24] MEDS: ACETAMINOPHEN 325 MG TABLET PO PRN (04:38)
[2020-08-24 04:55] LABS: Calcium 9.1 MG/DL (8.5-10.1); Osmolality,Calculated 291.6 MOS/KG (273-304)
[2020-08-24 05:20] LABS: ABG Base Excess 7.8 MMOL/L (-2.5-2.5); ABG HCO3 31.6 MMOL/L (20-26); ABG Oxygen Saturation 97.8 % (95-100); ABG PCO2 40.4 MM HG (35-48); ABG PH 7.502 (7.35-7.45); ABG TCO2 29.5 MMOL/L (23-27)
[2020-08-24] MEDS: MEROPENEM 1,000 MG in SODIUM CHLORIDE 0.9% 100 ML IV SCH ×3 (06:12→23:31)
[2020-08-24] MEDS: POTASSIUM CHLORIDE 20 MEQ/15 ML UDCUP PER TUBE PRN ×4 (06:13→12:05)
[2020-08-24] MEDS: ZINC OXIDE 16% PASTE 57 GM TUBE TOP SCH ×2 (08:50→20:10)
[2020-08-24] MEDS: CHOLECALCIFEROL 400 UNIT TABLET PO SCH ×2 (08:57→20:09)
[2020-08-24] MEDS: METOPROLOL TARTRATE 50 MG TABLET PO SCH ×2 (08:57→20:09)
[2020-08-24] MEDS: predniSONE 5 MG TABLET PER TUBE SCH (08:57)
[2020-08-24] MEDS: QUEtiapine 25 MG TABLET PO SCH ×2 (08:57→20:09)
[2020-08-24] MEDS: ZINC GLUCONATE 50 MG TABLET PO SCH (08:57)
[2020-08-24] MEDS: GABAPENTIN 50 MG/ML 30 ML/BOTTLE PO SCH ×3 (08:57→20:10)
[2020-08-24] MEDS: acetaZOLAMIDE 250 MG TABLET PO SCH (08:57)
[2020-08-24] MEDS: FUROSEMIDE 40 MG/4 ML VIAL IV SCH (08:57)
[2020-08-24] MEDS: ASCORBIC ACID 500 MG TABLET PO SCH ×2 (08:57→20:09)
[2020-08-24] MEDS: FAMOTIDINE 20 MG TABLET PER TUBE SCH ×2 (08:57→20:09)
[2020-08-24] MEDS: MULTIVITAMIN LIQUID (CENTRUM) 60 ML BOTTLE PO SCH (08:57)
[2020-08-24] MEDS: LOSARTAN 25 MG TABLET PO SCH ×2 (08:57→20:09)
[2020-08-24] MEDS: ASPIRIN EC 81 MG TABLET PO SCH (08:57)
[2020-08-24] MEDS: DIAZEPAM 5 MG TABLET PO SCH (08:57)
[2020-08-24] MEDS: INSULIN GLARGINE 100 UNIT/ML SUBCUT SCH (09:00)
[2020-08-24] MEDS: ENOXAPARIN 60 MG/0.6 ML SYRINGE SUBCUT SCH ×2 (09:10→20:09)
[2020-08-24] MEDS: VANCOMYCIN INJ 1,250 MG in SODIUM CHLORIDE 0.9% 250 ML IV SCH ×2 (09:53→20:08)
[2020-08-24 12:58] LABS: Pt O2 Delivery Device Ventilator
[2020-08-24 12:59] LABS: ABG Base Excess 5.8 MMOL/L (-2.5-2.5); ABG HCO3 29.7 MMOL/L (20-26); ABG Oxygen Saturation 98.6 % (95-100); ABG PCO2 55.2 MM HG (35-48); ABG PH 7.373 (7.35-7.45)
[2020-08-24] MEDS: POTASSIUM CHLORIDE 20 MEQ/15 ML UDCUP PER TUBE SCH ×3 (13:50→17:38)
[2020-08-24] MEDS: MINERAL OIL/PETROLATUM OPH OINT 3.5 GM TUBE BOTH EYES SCH (20:10)
[2020-08-25] MEDS: INSULIN REGULAR 100 UNIT/ML SUBCUT SCH ×5 (00:27→23:39)
[2020-08-25] MEDS: METOCLOPRAMIDE 10 MG/2 ML VIAL IV SCH ×5 (00:27→23:27)
[2020-08-25] MEDS: METOPROLOL TARTRATE 5 MG/5 ML VIAL IV PRN (02:35)
[2020-08-25 02:55] LABS: Allen Test Positive; Pt O2 Delivery Device Ventilator
[2020-08-25 02:56] LABS: ABG Base Excess 4.4 MMOL/L (-2.5-2.5); ABG HCO3 27.8 MMOL/L (20-26); ABG PCO2 36.7 MM HG (35-48); ABG PH 7.498 (7.35-7.45); ABG PO2 114.1 MM HG (80-95)
[2020-08-25] MEDS: oxyCODONE IR 5 MG TABLET PER TUBE SCH ×4 (03:08→20:52)
[2020-08-25 05:07] LABS: Osmolality,Calculated 284.1 MOS/KG (273-304)
[2020-08-25] MEDS: POTASSIUM CHLORIDE 20 MEQ/15 ML UDCUP PER TUBE PRN (06:04)
[2020-08-25] MEDS: MEROPENEM 1,000 MG in SODIUM CHLORIDE 0.9% 100 ML IV SCH ×3 (06:24→23:27)
[2020-08-25] MEDS: predniSONE 5 MG TABLET PER TUBE SCH (09:19)
[2020-08-25] MEDS: METOPROLOL TARTRATE 50 MG TABLET PO SCH ×2 (09:20→20:51)
[2020-08-25] MEDS: ASCORBIC ACID 500 MG TABLET PO SCH ×2 (09:20→20:50)
[2020-08-25] MEDS: acetaZOLAMIDE 250 MG TABLET PO SCH (09:20)
[2020-08-25] MEDS: FAMOTIDINE 20 MG TABLET PER TUBE SCH ×2 (09:20→20:51)
[2020-08-25] MEDS: ASPIRIN EC 81 MG TABLET PO SCH (09:20)
[2020-08-25] MEDS: ZINC GLUCONATE 50 MG TABLET PO SCH (09:21)
[2020-08-25] MEDS: DIAZEPAM 5 MG TABLET PO SCH (09:21)
[2020-08-25] MEDS: QUEtiapine 25 MG TABLET PO SCH ×2 (09:21→20:49)
[2020-08-25] MEDS: CHOLECALCIFEROL 400 UNIT TABLET PO SCH ×2 (09:21→20:49)
[2020-08-25] MEDS: ENOXAPARIN 60 MG/0.6 ML SYRINGE SUBCUT SCH ×2 (09:22→20:48)
[2020-08-25] MEDS: LOSARTAN 25 MG TABLET PO SCH ×2 (09:22→20:52)
[2020-08-25] MEDS: FUROSEMIDE 40 MG/4 ML VIAL IV SCH (09:22)
[2020-08-25] MEDS: MULTIVITAMIN LIQUID (CENTRUM) 60 ML BOTTLE PO SCH (09:23)
[2020-08-25] MEDS: INSULIN GLARGINE 100 UNIT/ML SUBCUT SCH (09:23)
[2020-08-25] MEDS: ZINC OXIDE 16% PASTE 57 GM TUBE TOP SCH ×2 (09:23→20:55)
[2020-08-25] MEDS: GABAPENTIN 50 MG/ML 30 ML/BOTTLE PO SCH ×3 (09:24→20:53)
[2020-08-25] MEDS: fentaNYL 25 MCG/HR PATCH TRANSDERM SCH (09:24)
[2020-08-25] MEDS: VANCOMYCIN INJ 1,250 MG in SODIUM CHLORIDE 0.9% 250 ML IV SCH ×2 (09:24→20:47)
[2020-08-25] MEDS: MINERAL OIL/PETROLATUM OPH OINT 3.5 GM TUBE BOTH EYES SCH (21:11)
[2020-08-26] MEDS: oxyCODONE IR 5 MG TABLET PER TUBE SCH ×4 (03:39→21:05)
[2020-08-26 04:19] LABS: Basophils # 0.1 10*3/uL (0.0-0.2); Eosinophils # 1.6 10*3/uL (0.0-0.87); Hematocrit 25.1 VOL% (35.7-47.0); Immature Granulocytes % 0.9 %; Immature Granulocytes Absolute 0.11 #; Lymphocytes # 2.8 10*3/uL (1.4-4.0); Lymphocytes % 22.1 % (21.3-54.2); Mean Corpuscular HGB Conc 31.9 GM/DL (32-36); Mean Corpuscular Volume 92.3 FL (87-102); Monocytes % 10.9 % (1.7-12.7); Neutrophils % 52.1 % (38.7-73.9); Platelet Count 592 T/CUMM (130-400); Red Blood Count 2.72 MC/CUMM (3.8-5.5); Red Cell Distribution Width 15.3 % (9.3-17.3); White Blood Count 12.5 T/CUMM (4-12)
[2020-08-26 04:35] LABS: ABG Base Excess 6.1 MMOL/L (-2.5-2.5); ABG HCO3 29.9 MMOL/L (20-26); ABG Oxygen Saturation 97.1 % (95-100); ABG PCO2 39.9 MM HG (35-48); ABG PH 7.492 (7.35-7.45); ABG PO2 91.9 MM HG (80-95); ABG TCO2 31.1 MMOL/L (23-27); Allen Test Positive; Pt O2 Delivery Device Ventilator
[2020-08-26 04:59] LABS: Eosinophils 13 % (0-10); Hypochromasia 1+; Lymphocytes 27 % (20-55); Microcytosis 1+; Platelet Estimate Increased; Segmented Neutrophils 46 % (50-85); Total Cells Counted 100
[2020-08-26 05:15] LABS: Calcium 8.9 MG/DL (8.5-10.1); Osmolality,Calculated 287.8 MOS/KG (273-304)
[2020-08-26] MEDS: INSULIN REGULAR 100 UNIT/ML SUBCUT SCH ×4 (05:38→23:42)
[2020-08-26] MEDS: METOCLOPRAMIDE 10 MG/2 ML VIAL IV SCH ×4 (05:45→23:01)
[2020-08-26] MEDS: MEROPENEM 1,000 MG in SODIUM CHLORIDE 0.9% 100 ML IV SCH ×3 (06:06→22:18)
[2020-08-26] MEDS: POTASSIUM CHLORIDE 20 MEQ/15 ML UDCUP PER TUBE PRN ×5 (07:00→23:00)
[2020-08-26] MEDS: ZINC OXIDE 16% PASTE 57 GM TUBE TOP SCH ×2 (08:21→21:06)
[2020-08-26] MEDS: MULTIVITAMIN LIQUID (CENTRUM) 60 ML BOTTLE PO SCH (08:21)
[2020-08-26] MEDS: METOPROLOL TARTRATE 50 MG TABLET PO SCH ×2 (08:21→21:04)
[2020-08-26] MEDS: ASPIRIN EC 81 MG TABLET PO SCH (08:21)
[2020-08-26] MEDS: INSULIN GLARGINE 100 UNIT/ML SUBCUT SCH (08:21)
[2020-08-26] MEDS: FUROSEMIDE 40 MG/4 ML VIAL IV SCH (08:21)
[2020-08-26] MEDS: LOSARTAN 25 MG TABLET PO SCH ×2 (08:21→21:04)
[2020-08-26] MEDS: acetaZOLAMIDE 250 MG TABLET PO SCH (08:21)
[2020-08-26] MEDS: ENOXAPARIN 60 MG/0.6 ML SYRINGE SUBCUT SCH ×2 (08:22→21:06)
[2020-08-26] MEDS: QUEtiapine 25 MG TABLET PO SCH ×2 (08:23→21:03)
[2020-08-26] MEDS: FAMOTIDINE 20 MG TABLET PER TUBE SCH ×2 (08:23→21:03)
[2020-08-26] MEDS: ZINC GLUCONATE 50 MG TABLET PO SCH (08:23)
[2020-08-26] MEDS: DIAZEPAM 5 MG TABLET PO SCH (08:23)
[2020-08-26] MEDS: CHOLECALCIFEROL 400 UNIT TABLET PO SCH ×2 (08:23→21:04)
[2020-08-26] MEDS: VANCOMYCIN INJ 1,250 MG in SODIUM CHLORIDE 0.9% 250 ML IV SCH ×2 (08:23→21:07)
[2020-08-26] MEDS: GABAPENTIN 50 MG/ML 30 ML/BOTTLE PO SCH ×3 (08:23→21:07)
[2020-08-26] MEDS: predniSONE 5 MG TABLET PER TUBE SCH (08:23)
[2020-08-26] MEDS: ASCORBIC ACID 500 MG TABLET PO SCH ×2 (08:23→21:05)
[2020-08-26] MEDS ORDERED: FUROSEMIDE 40 MG/4 ML VIAL IV SCH (09:00)
[2020-08-26] MEDS ORDERED: fentaNYL 100 MCG/2 ML VIAL ONE (12:17)
[2020-08-26] MEDS ORDERED: ROCURONIUM 50 MG/5 ML VIAL IV ONE (12:29)
[2020-08-26] MEDS ORDERED: SEVOFLURANE 1 UNIT/15 MINUTE INH ONE (12:29)
[2020-08-26] MEDS ORDERED: ETOMIDATE 40 MG/20 ML VIAL IV ONE (12:29)
[2020-08-26] MEDS ORDERED: PHENYLEPHRINE 1 MG/10 ML SYRINGE IV ONE (12:29)
[2020-08-26] MEDS: MINERAL OIL/PETROLATUM OPH OINT 3.5 GM TUBE BOTH EYES SCH (21:36)
[2020-08-27] MEDS: POTASSIUM CHLORIDE 20 MEQ/15 ML UDCUP PER TUBE PRN ×2 (00:56→03:07)
[2020-08-27] MEDS: oxyCODONE IR 5 MG TABLET PER TUBE SCH ×3 (03:07→15:45)
[2020-08-27 04:36] LABS: ABG Base Excess 3.9 MMOL/L (-2.5-2.5); ABG Oxygen Saturation 98.8 % (95-100); ABG TCO2 25.7 MMOL/L (23-27)
[2020-08-27 05:02] LABS: Basophils # 0.1 10*3/uL (0.0-0.2); Basophils % 0.8 % (0.0-0.8); Eosinophils # 1.7 10*3/uL (0.0-0.87); Eosinophils % 12.9 % (0.00-10.9); Hematocrit 26.8 VOL% (35.7-47.0); Hemoglobin 8.3 GM/DL (12.0-16.0); Immature Granulocytes % 0.9 %; Immature Granulocytes Absolute 0.12 #; Lymphocytes # 2.4 10*3/uL (1.4-4.0); Lymphocytes % 18.2 % (21.3-54.2); Mean Platelet Volume 11.8 FL (9.6-12.0); Monocytes % 11.1 % (1.7-12.7); Neutrophils % 56.1 % (38.7-73.9); Platelet Count 639 T/CUMM (130-400); Red Blood Count 2.85 MC/CUMM (3.8-5.5); Red Cell Distribution Width 15.6 % (9.3-17.3); White Blood Count 13.1 T/CUMM (4-12)
[2020-08-27] MEDS: METOCLOPRAMIDE 10 MG/2 ML VIAL IV SCH ×3 (05:25→19:20)
[2020-08-27] MEDS: INSULIN REGULAR 100 UNIT/ML SUBCUT SCH ×3 (05:25→17:37)
[2020-08-27 05:29] LABS: Eosinophils 14 % (0-10); Hypochromasia Slight; Lymphocytes 17 % (20-55); Platelet Estimate Increased; Segmented Neutrophils 60 % (50-85); Total Cells Counted 100
[2020-08-27] MEDS: METOPROLOL TARTRATE 5 MG/5 ML VIAL IV PRN (05:29)
[2020-08-27 05:30] LABS: Osmolality,Calculated 287.7 MOS/KG (273-304)
[2020-08-27] MEDS: MEROPENEM 1,000 MG in SODIUM CHLORIDE 0.9% 100 ML IV SCH ×2 (06:04→15:45)
[2020-08-27 06:18] VITALS: BP 121/60
[2020-08-27] MEDS: ENOXAPARIN 60 MG/0.6 ML SYRINGE SUBCUT SCH (08:44)
[2020-08-27] MEDS: ZINC GLUCONATE 50 MG TABLET PO SCH (08:45)
[2020-08-27] MEDS: ASCORBIC ACID 500 MG TABLET PO SCH (08:45)
[2020-08-27] MEDS: FAMOTIDINE 20 MG TABLET PER TUBE SCH (08:45)
[2020-08-27] MEDS: QUEtiapine 25 MG TABLET PO SCH (08:45)
[2020-08-27] MEDS: acetaZOLAMIDE 250 MG TABLET PO SCH (08:45)
[2020-08-27] MEDS: ASPIRIN EC 81 MG TABLET PO SCH (08:45)
[2020-08-27] MEDS: predniSONE 5 MG TABLET PER TUBE SCH (08:45)
[2020-08-27] MEDS: DIAZEPAM 5 MG TABLET PO SCH (08:46)
[2020-08-27] MEDS: FUROSEMIDE 40 MG/4 ML VIAL IV SCH (08:46)
[2020-08-27] MEDS: CHOLECALCIFEROL 400 UNIT TABLET PO SCH (08:46)
[2020-08-27] MEDS: LOSARTAN 25 MG TABLET PO SCH (08:46)
[2020-08-27] MEDS: ZINC OXIDE 16% PASTE 57 GM TUBE TOP SCH (08:47)
[2020-08-27] MEDS: MULTIVITAMIN LIQUID (CENTRUM) 60 ML BOTTLE PO SCH (08:47)
[2020-08-27] MEDS: INSULIN GLARGINE 100 UNIT/ML SUBCUT SCH (08:47)
[2020-08-27] MEDS: GABAPENTIN 50 MG/ML 30 ML/BOTTLE PO SCH ×2 (09:50→15:45)
[2020-08-27] MEDS: METOPROLOL TARTRATE 50 MG TABLET PO SCH (10:25)
== END 2020-08-27 18:55 | DRG 3 ==
LOC: N.ED 14:46 → N.EDINP 16:50 → SUATTDRO 16:50 → N.2E 17:43 → N.CC 08-05 08:05 → N.ICU 08-25 01:41
PROVIDERS: ADMIT Internal Medicine; ATTEND Family Medicine